=== PATIENT | female | born 1970 | race Caucasian/White ===

== ENCOUNTER 2020-11-08 09:15 | Outpatient (REF) | payer OTHER, SELFPAY ==
--- NOTE | ~2020-11-08 | MM_ITS ---
EXAMINATION: MM SCREENING DIGITAL BREAST TOMOSYNTHESIS, BILATERAL CLINICAL INFORMATION: Screening. Asymptomatic. The lifetime risk of breast cancer based on the Tyrer-Cuzick Model is 8.3%. COMPARISON: Mammography: May 30, 2018 and May 16, 2017 TECHNIQUE: Digital breast tomosynthesis is performed in both the craniocaudal and mediolateral oblique views along with computer-aided detection (CAD). Synthesized 2D images are generated from the tomosynthesis. FINDINGS: The breasts are heterogeneously dense, which may obscure small masses (ACR BI-RADS breast composition Category c). There are no significant masses, abnormal calcifications, or other abnormalities. MM/MM tomosynthesis screening BI IMPRESSION: There are no significant changes from prior study. ASSESSMENT: BI-RADS 1: Negative RECOMMENDATION: Routine annual mammography screening. This patient's information was entered into a reminder system with a target due date for their next mammogram.
== END 2020-11-08 09:16 | disposition home or self-care (01) ==
LOC: HO.MAMMO 09:15
PROVIDERS: Visit Provider Internal Medicine
DX: Z12.31 Encounter for screening mammogram for malignant neoplasm of breast (principal)
CPT/HCPCS: 77063; 77067

== ENCOUNTER 2021-01-03 08:51 | Outpatient (REF) | payer OTHER, SELFPAY ==
[2021-01-03 10:38] LABS: Hematocrit 39.8 % (37-47); Hemoglobin 12.9 g/dl (12.0-16.0); Mean Corpuscular HGB Conc 32.4 g/dl (31.0-35.0); Mean Corpuscular Volume 89.4 fL (80-98); Mean Platelet Volume 9.5 fL (9.4-12.3); Platelet Count 356 X10*3/uL (160-400); Red Blood Count 4.45 X10*6/uL (4.20-5.50); Red Cell Distribution Width 12.4 % (11.0-16.0); White Blood Count 9.8 X10*3/uL (4.8-10.8)
[2021-01-03 11:16] LABS: Alanine Aminotransferase 14 U/L (0-31); Albumin Level 4.4 g/dL (3.5-5.0); Alkaline Phosphatase 66 U/L (39-117); Anion Gap 13 (12-20); Aspartate Amino Transferase 16 U/L (5-31); Bilirubin Total 0.8 mg/dL (0.0-1.0); Blood Urea Nitrogen 7 mg/dL (9-16); C Reactive Protein 0.15 mg/dL (< or = 0.50); Calcium 9.5 mg/dL (8.4-10.2); Carbon Dioxide 25 mmol/L (22-29); Chloride 106 mmol/L (96-108); Estimated Glomerular Filt Rate > 60; Glucose Random 96 mg/dL (60-115); Potassium 4.2 mmol/L (3.3-5.1); Sodium 140 mmol/L (135-145); Total Protein 7.4 g/dL (6.5-8.0)
[2021-01-03 11:41] LABS: TSH reflex Free T4 0.04 uIU/mL (0.32-4.0)
[2021-01-03 12:45] LABS: Free T4 (Free Thyroxine) 1.48 ng/dL (0.71-1.85)
[2021-01-11 11:22] LABS: Transglutaminase Ab IgG <1.0 U/mL; Transglutaminase IgA <1.0 U/mL
== END 2021-01-03 08:52 | disposition home or self-care (01) ==
LOC: HO.LAB 08:51
PROVIDERS: PCP Internal Medicine; Referring Provider Internal Medicine; Visit Provider Nurse Practitioner Family
DX: R10.11 Right upper quadrant pain (principal); R14.0 Abdominal distension (gaseous); K21.9 Gastro-esophageal reflux disease without esophagitis; K58.1 Irritable bowel syndrome with constipation; K59.04 Chronic idiopathic constipation
CPT/HCPCS: 80053; 83516; 84439; 84443; 85027; 86140; 99212

== ENCOUNTER 2021-01-19 10:37 | Outpatient (REF) | payer OTHER, SELFPAY | END 2021-01-19 10:38 | disposition home or self-care (01) | LOC: HO.LNP 10:37 | PROVIDERS: Visit Provider Nurse Practitioner Family | DX: K21.9 Gastro-esophageal reflux disease without esophagitis (principal) | CPT/HCPCS: 87338 ==

== ENCOUNTER → 2021-02-17 09:31 | Outpatient (BNVA) | payer OTHER, SELFPAY | PROVIDERS: PCP Internal Medicine; Referring Provider Internal Medicine; Visit Provider Nurse Practitioner Family | DX: Z12.11 Encounter for screening for malignant neoplasm of colon (principal); K21.9 Gastro-esophageal reflux disease without esophagitis; K58.1 Irritable bowel syndrome with constipation; K59.00 Constipation, unspecified | CPT/HCPCS: 99212 ==

== ENCOUNTER 2021-05-26 11:19 | Emergency (ER) | payer OTHER, SELFPAY ==
[2021-05-26 11:42] VITALS: BP 136/83; PULSE 93; RESP 16; TEMP 36.9; O2SAT 99; BMI 25.7
[2021-05-26 12:12] LABS: Appearance Urine HAZY; Color Urine YELLOW; Glucose Urine UA NEG (NEG); Leukocyte Esterase Urine 1+ (NEG); Nitrite Urine NEG (NEG); PH 6.5 (5.0-8.0); UACC Culture Trigger YES; Urine Blood 1+ (NEG); Urine Ketones NEG (NEG); Urine Protein NEG (NEG-TRACE)
[2021-05-26 12:25] LABS: Bacteria Urine 1+ /LPF; Squamous Epithelial Cell Urine 1+ /LPF; UACC CULT YES; WBC Urine 30-49 /HPF (0-4)
[2021-05-26 12:26] LABS: Mucus Urine TRACE /LPF
[2021-05-26 16:55] VITALS: BP 143/86; PULSE 86; RESP 16; TEMP 37.4; O2SAT 100
--- NOTE | 2021-05-26 17:03 | ED.FEMALEGU ---
HPI - Female Genitourinary General Chief complaint: Urogenital-Female Stated complaint: blood in urine Time Seen by Provider: 05/26/21 16:42 Source: patient and interpreter for the deaf Mode of arrival: ambulatory Limitations: language barrier History of Present Illness HPI Narrative: 50-year-old female with a history of UTIs here with reports of dysuria and hematuria for 2 days with low back pain. Patient denies any vomiting, fevers, chills, abdominal pain or flank pain. Related Data Home Medications Medication Instructions Recorded Confirmed aripiprazole 15 mg tablet 15 mg PO DAILY 01/03/21 01/03/21 ibuprofen 800 mg tablet 800 mg PO TID 01/03/21 01/03/21 levothyroxine 112 mcg tablet 112 mcg PO .COMPLEX 01/03/21 01/03/21 (Synthroid) levothyroxine 125 mcg tablet See Rx Instructions PO DAILY 01/03/21 01/03/21 (Synthroid) Previous Rx's Medication Instructions Recorded bisacodyl 5 mg tablet,delayed 10 mg PO ONCE 1 Days #2 tab 02/17/21 release (Dulcolax (bisacodyl)) methylcellulose (laxative) 500 mg 500 mg PO DAILY #30 tab 02/17/21 tablet (Citrucel) polyethylene glycol 3350 17 238 g PO ONCE #238 g 02/17/21 gram/dose oral powder (Miralax) sennosides 8.6 mg tablet (Natural 8.6 mg PO BEDTIME #30 tab 02/17/21 Senna Laxative) omeprazole 40 mg capsule,delayed 40 mg PO BID 30 Days #60 cap 03/24/21 release nitrofurantoin 100 mg PO Q12H 5 Days #10 cap 05/26/21 monohydrate/macrocrystals 100 mg capsule (Macrobid) phenazopyridine 200 mg tablet 200 mg PO TID PRN #10 tab 05/26/21 (Pyridium) Allergies Allergy/AdvReac Type Severity Reaction Status Date / Time morphine [MORPHINE] Allergy Unknown ITCHING Verified 02/17/21 09:39 sucralfate [SUCRALFATE] Allergy Unknown RASH Verified 02/17/21 09:39 Review of Systems Review of Systems: Yes all other systems are reviewed and are negative Constitutional: Constitutional: Reports no additional constitutional complaints, Denies body ache(s), Denies chills, Denies fever(s), Denies headache(s) and Denies weakness Eyes: Eyes: Reports no additional eye complaints and Denies change in vision ENT: Reports system reviewed and no additional complaints, except as documented, Denies dizziness, Denies headache(s), Denies nasal congestion, Denies nasal discharge and Denies neck pain Cardiovascular: Cardiovascular: Reports no additional cardiovascular complaints, Denies chest pain, Denies leg edema and Denies dyspnea Respiratory: Respiratory: Reports no additional respiratory complaints, Denies cough and Denies dyspnea Gastrointestinal: Gastrointestinal: Reports no additional gastrointestinal complaints, Denies abdominal pain, Denies diarrhea, Denies nausea and Denies vomiting Genitourinary: Genitourinary: Reports no additional female genitourinary complaints, Reports hematuria, Reports dysuria, Denies flank pain, Denies urinary incontinence, Denies urinary hesitancy, Denies urinary urgency and Denies vaginal discharge Musculoskeletal: Musculoskeletal: Reports no additional musculoskeletal complaints, Reports back pain, Denies arthralgias, Denies joint swelling, Denies neck pain, Denies numbness and Denies tingling Integumentary/Breasts: Skin/Breast: Reports system reviewed and no additional complaints, except as docu and Denies rash Neurologic: Reports system reviewed and no additional complaints, except as documented, Denies Abnormal speech present, Denies dizziness, Denies headache(s), Denies numbness, Denies tingling and Denies weakness PMFSH Past Medical History Attestation statement: The following information was validated with the patient. Source: old records reviewed and nursing notes reviewed Surgical History History of cholecystectomy Family History Family History Father No problems noted. Mother Heart disease Social History Social History Alcohol intake: never Patient Tobacco Use Status: Never used Tobacco Advance Directives: No Advance Directives Information Provided: No Physical Exam Vital Signs: Vital Signs: Last Vital Signs Temp 99.3 F 05/26/21 16:55 Pulse 86 05/26/21 16:55 Resp 16 05/26/21 16:55 BP 143/86 H 05/26/21 16:55 Pulse Ox 100 05/26/21 16:55 BMI result Body Mass Index 25.7 Const: General: cooperative, healthy appearing, comfortable and no acute distress Orientation/consciousness: patient oriented x3 Limitations: no limitations HENMT: Head: Yes normal to inspection Ears: hearing grossly normal bilaterally General nose exam: Normal external nose present Face and sinus: Yes normal facial exam Mouth: Normal oral and palatal mucosa present Throat: Yes posterior oropharynx normal Eyes: General: appearance normal, both eyes and all related structures Pupils: Equal, round and reactive pupils present Neck: Neck: Yes normal visual inspection Chest: Chest palpation & inspection: normal inspection of the chest Resp: Effort & Inspection: normal respiratory effort Auscultation: clear to auscultation bilaterally Cardio: Rate: regular rate Rhythm: regular rhythm Peripheral pulses: Peripheral pulses 2+ throughout GI: Inspection: Yes normal to inspection Palpation (GI): Soft to palpation and nontender Auscultation: normal bowel sounds : General: Yes no CVA tenderness Back/Spine/Pelvis: Back: no CVA tenderness Thoracic/Lumbar Spine: thoracic and lumbar spine normal to inspection Skin: General skin exam: no rashes or lesions noted Neuro: General: patient oriented x3, no focal motor deficits and normal sensation to monofilament Cranial nerves: Yes Equal, round and reactive pupils present Cognition (Neuro): normal cognition Speech: No Abnormal speech present Gait exam (Neuro): Normal gait present Motor exam (neuro): 5/5 motor strength present throughout Extrem: General: Yes normal to inspection Course Course Course Narrative: 50-year-old female here with dysuria, hematuria and low back pain for 2 days. No flank pain, CVA tenderness, fever or vomiting. UA is consistent with a UTI. Hematuria is likely secondary to cystitis. Vitals are stable. Abdomen is soft nontender. Exam is benign. Will treat with course of antibiotics. Reviewed worrisome signs and symptoms of when to return to the emergency department. Comfortable discharge home. MDM - Female Genitourinary Medical Records Attestation: I reviewed the patient's medical records. Lab Data Attestation: I reviewed the patient's lab results. Labs: Lab Results 05/26/21 Range/Units 11:53 Urine Color YELLOW Urine Appearance HAZY Urine pH 6.5 (5.0-8.0) Ur Specific [place] 1.010 (1.005-1.025) Urine Protein NEG (NEG-TRACE) MG/DL Urine Glucose (UA) NEG (NEG) MG/DL Urine Ketones NEG (NEG) MG/DL Urine Blood 1+ H (NEG) Urine Nitrite NEG (NEG) Ur Leukocyte Esterase 1+ H (NEG) Urine RBC 5-9 H (0) /HPF Urine WBC 30-49 H (0-4) /HPF Ur Squamous Epith Cells 1+ /LPF Urine Bacteria 1+ /LPF Urine Mucus TRACE /LPF Discharge Plan Discharge Clinical Impression: Urinary tract infection Patient Disposition: Home, Self-Care Instructions: Urinary Tract Infection in Women (DC) Additional Instructions: Increase fluids, rest Prescriptions: New nitrofurantoin monohyd/m-cryst [Macrobid] 100 mg capsule 100 mg PO Q12H 5 Days Qty: 10 0RF Rx Instructions: must administer with a meal/food phenazopyridine [Pyridium] 200 mg tablet 200 mg PO TID PRN (Reason: pain) Qty: 10 0RF No Action omeprazole 40 mg capsule,delayed release(DR/EC) 40 mg PO BID 30 Days Qty: 60 3RF Rx Instructions: salas media hora antes del desayuno y 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 ibuprofen 800 mg tablet 800 mg PO TID 0RF aripiprazole 15 mg tablet 15 mg PO DAILY 0RF levothyroxine [Synthroid] 112 mcg tablet 112 mcg PO .COMPLEX 0RF Rx Instructions: 112 mcg PO Saturday through Saturday; levothyroxine [Synthroid] 125 mcg tablet See Rx Instructions PO DAILY 0RF Rx Instructions: Saturday and Saturday PO daily; bisacodyl [Dulcolax (bisacodyl)] 5 mg tablet,delayed release (DR/EC) 10 mg PO ONCE 1 Days Qty: 2 0RF Rx Instructions: take 2 tabs at noon the day before your colonoscopy polyethylene glycol 3350 [Miralax] 17 gram/dose powder 238 g PO ONCE Qty: 238 0RF Rx Instructions: As directed by gastroenterology department at [facility] Citrucel 500 mg tablet 500 mg PO DAILY Qty: 30 2RF Rx Instructions: take it with full glass of water sennosides [Natural Senna Laxative] 8.6 mg tablet 8.6 mg PO BEDTIME Qty: 30 2RF Referrals: Valentina Gutierrez MD [Primary Care Provider] - 1 week (For persistent symptoms) Interventions: ED Discharge Assessment Last Done: 05/26/21 17:15 Discharge Date/Time: 05/26/21 17:15 Print Language: Nauruan
== END 2021-05-26 17:15 | disposition home or self-care (01) ==
PROVIDERS: Emergency Provider Emergency Medicine; PCP Internal Medicine
DX: N39.0 Urinary tract infection, site not specified (principal)
CPT/HCPCS: 81001; 87086; 87088; 87186; 99283

== ENCOUNTER 2021-12-21 14:46 | Outpatient (REF) | payer OTHER, SELFPAY ==
--- NOTE | ~2021-12-21 | MM_ITS ---
EXAMINATION: MM SCREENING DIGITAL BREAST TOMOSYNTHESIS, BILATERAL CLINICAL INFORMATION: Screening. Asymptomatic. The lifetime risk of breast cancer based on the Tyrer-Cuzick Model is 8%. COMPARISON: Mammography: 11/08/2020, 05/30/2018, 05/16/2017 TECHNIQUE: Digital breast tomosynthesis is performed in both the craniocaudal and mediolateral oblique views along with computer-aided detection (CAD). Synthesized 2D images are generated from the tomosynthesis. Additional right MLO and exaggerated left CC views are provided. FINDINGS: There are scattered areas of fibroglandular density (ACR BI-RADS breast composition Category b). There are no significant masses, abnormal calcifications, or other abnormalities. Parenchymal pattern is similar to prior studies. There is no developing density or architectural abnormality. Again, there is a dermal lesion overlying the posterior lower inner left breast. The axilla are unremarkable. No significant changes. MM/MM tomosynthesis screening BI IMPRESSION: No mammographic evidence of malignancy. ASSESSMENT: BI-RADS 2: Benign RECOMMENDATION: Routine annual mammography screening. This patient's information was entered into a reminder system with a target due date for their next mammogram.
== END 2021-12-21 14:47 | disposition home or self-care (01) ==
LOC: HO.MAMMO 14:46
PROVIDERS: PCP Internal Medicine; Visit Provider Internal Medicine
DX: Z12.31 Encounter for screening mammogram for malignant neoplasm of breast (principal)
CPT/HCPCS: 77063; 77067

== ENCOUNTER 2022-09-14 10:43 | Outpatient (REF) | payer OTHER, SELFPAY ==
--- NOTE | ~2022-09-14 | XR_ITS ---
EXAMINATION: XR HAND, RIGHT CLINICAL INFORMATION: Right hand pain. COMPARISON: None available. TECHNIQUE: PA, lateral, and oblique views of the right hand. FINDINGS: Mild degenerative changes are present at the DIP joints, most prominent at the index finger. PIP joints, MCP joints and wrist appear unremarkable. No fractures are seen. No chondrocalcinosis. XR/XR hand RT min 3V IMPRESSION: Mild degenerative changes at the DIP joints.
== END 2022-09-14 10:44 | disposition home or self-care (01) ==
LOC: HO.XRAY 10:43
PROVIDERS: PCP Internal Medicine; Visit Provider General Practice
DX: M79.641 Pain in right hand (principal)
CPT/HCPCS: 73130

== ENCOUNTER 2023-03-26 11:57 | Outpatient (REF) | payer OTHER, SELFPAY | END 2023-03-26 11:58 | disposition home or self-care (01) | LOC: HO.MAMMO 11:57 | PROVIDERS: PCP Internal Medicine; Visit Provider Internal Medicine | DX: Z12.31 Encounter for screening mammogram for malignant neoplasm of breast (principal) | CPT/HCPCS: 77063; 77067 ==

== ENCOUNTER → 2023-03-26 12:15 | Outpatient (BNV) | payer OTHER, SELFPAY | PROVIDERS: PCP Internal Medicine; Visit Provider Radiology Diagnostic Radiology | DX: Z12.31 Encounter for screening mammogram for malignant neoplasm of breast (principal) | CPT/HCPCS: 77063; 77067 ==

== ENCOUNTER 2023-04-23 12:00 | Outpatient (REF) | payer OTHER, SELFPAY ==
[2023-04-26 03:40] LABS: HPV mRNA E6/E7 rflx Not Detected (Not Detected)
== END 2023-04-23 12:01 ==
LOC: HO.LNP 12:00
PROVIDERS: Visit Provider Advanced Practice Midwife
DX: Z12.4 Encounter for screening for malignant neoplasm of cervix (principal); Z11.51 Encounter for screening for human papillomavirus (HPV)
CPT/HCPCS: 87624; 88142

== ENCOUNTER 2023-05-13 10:18 | Outpatient (REF) | payer OTHER, SELFPAY ==
[2023-05-13 14:42] LABS: MANUAL DIFF FLAG NO
[2023-05-13 14:53] LABS: Basophils Percent Auto 0.2 % (0-2); Eosinophils Percent Auto 0.1 % (0-4); Hematocrit 40.7 % (37.0-47.0); Imm Gran Abs Auto 0.04 X10*3/uL (0.00-0.03); Imm Gran Pct Auto 0.4 % (0.0-0.4); Lymphocytes Absolute Auto 3.9 X10*3/uL (1.2-4.9); Mean Corpuscular HGB Conc 31.9 g/dl (31.0-35.0); Mean Corpuscular Hemoglobin 28.8 pg (27.0-33.0); Mean Platelet Volume 9.6 fL (9.4-12.3); Monocytes Absolute Auto 0.6 X10*3/uL (0.1-1.2); Monocytes Percent Auto 6.3 % (2-11); Neutrophils Absolute Auto 4.6 x10*3/uL (2.0-8.3); Platelet Count 324 X10*3/uL (160-400); Red Blood Count 4.52 X10*6/uL (4.20-5.50); Red Cell Distribution Width 13.2 % (11.0-16.0); White Blood Count 9.2 X10*3/uL (4.8-10.8)
[2023-05-13 15:11] LABS: Rheumatoid Factor < 13.0 IU/mL (<15.0)
[2023-05-13 15:29] LABS: Alanine Aminotransferase 16 U/L (0-31); Albumin Level 4.3 g/dL (3.5-5.0); Alkaline Phosphatase 93 U/L (39-117); Anion Gap 12 (12-20); Aspartate Amino Transferase 20 U/L (5-31); Bilirubin Total 0.6 mg/dL (0.0-1.0); Blood Urea Nitrogen 12 mg/dL (9-16); C Reactive Protein 0.23 mg/dL (< or = 0.50); Calcium 9.6 mg/dL (8.4-10.2); Carbon Dioxide 28 mmol/L (22-29); Chloride 104 mmol/L (96-108); Cholesterol 230 mg/dL (<200); Estimated Glomerular Filt Rate > 60; Glucose Random 87 mg/dL (60-115); HDL Cholesterol 64 mg/dL (>40); LDL Cholesterol Calculated 149 mg/dL (<100); Potassium 3.8 mmol/L (3.3-5.1); Sodium 140 mmol/L (135-145); Triglycerides 87 mg/dL (<150)
[2023-05-13 15:32] LABS: Erythrocyte Sedimentation Rate 34 MM/HR (0-20)
[2023-05-13 15:37] LABS: TSH reflex Free T4 2.72 uIU/mL (0.32-4.0)
[2023-05-14 07:29] LABS: HIV AB/AG Nonreactive (Nonreactive); HIV Num 1 0.77 S/CO (0.00-0.99)
== END 2023-05-13 10:19 | disposition home or self-care (01) ==
LOC: HO.CHCLDS 10:18
PROVIDERS: Visit Provider Internal Medicine
DX: Z00.00 Encounter for general adult medical examination without abnormal findings (principal); E03.9 Hypothyroidism, unspecified; M15.9 Polyosteoarthritis, unspecified
CPT/HCPCS: 36415; 80053; 80061; 84443; 85025; 85652; 86140; 86431; 87389

== ENCOUNTER 2023-12-24 10:51 | Outpatient (REF) | payer OTHER, SELFPAY ==
[2023-12-24 15:00] LABS: MANUAL DIFF FLAG NO
[2023-12-24 15:07] LABS: Basophils Percent Auto 0.1 % (0-2); Eosinophils Percent Auto 0.1 % (0-4); Hematocrit 39.5 % (37.0-47.0); Hemoglobin 12.8 g/dl (12.0-16.0); Imm Gran Abs Auto 0.04 X10*3/uL (0.00-0.03); Imm Gran Pct Auto 0.4 % (0.0-0.4); Lymphocytes Absolute Auto 3.3 X10*3/uL (1.2-4.9); Lymphocytes Percent Auto 35.4 % (20-40); Mean Corpuscular HGB Conc 32.4 g/dl (31.0-35.0); Mean Corpuscular Hemoglobin 29.4 pg (27.0-33.0); Mean Corpuscular Volume 90.8 fL (80.0-98.0); Mean Platelet Volume 9.9 fL (9.4-12.3); Monocytes Absolute Auto 0.6 X10*3/uL (0.1-1.2); Monocytes Percent Auto 6.9 % (2-11); Neutrophils Absolute Auto 5.3 x10*3/uL (2.0-8.3); Neutrophils Percent Auto 57.1 % (45-73); Platelet Count 328 X10*3/uL (160-400); Red Blood Count 4.35 X10*6/uL (4.20-5.50); Red Cell Distribution Width 13.2 % (11.0-16.0); White Blood Count 9.2 X10*3/uL (4.8-10.8)
[2023-12-24 15:30] LABS: Alanine Aminotransferase 27 U/L (0-31); Albumin Level 4.4 g/dL (3.5-5.0); Alkaline Phosphatase 95 U/L (39-117); Anion Gap 12 (12-20); Aspartate Amino Transferase 26 U/L (5-31); Bilirubin Total 0.6 mg/dL (0.0-1.0); Blood Urea Nitrogen 11 mg/dL (9-16); Carbon Dioxide 30 mmol/L (22-29); Chloride 102 mmol/L (96-108); Cholesterol 273 mg/dL (<200); Estimated Glomerular Filt Rate > 60; Glucose Random 90 mg/dL (60-115); HDL Cholesterol 67 mg/dL (>40); LDL Cholesterol Calculated 184 mg/dL (<100); Potassium 3.7 mmol/L (3.3-5.1); Sodium 140 mmol/L (135-145); Total Protein 7.9 g/dL (6.5-8.0); Triglycerides 114 mg/dL (<150)
[2023-12-24 15:45] LABS: TSH reflex Free T4 4.24 uIU/mL (0.32-4.0)
[2023-12-25 07:29] LABS: ~HepC Num1 0.23 S/CO (0.00-0.79); ~Hepatitis C Antibody Nonreactive (Nonreactive)
== END 2023-12-24 10:52 | disposition home or self-care (01) ==
LOC: HO.CHCLDS 10:51
PROVIDERS: Visit Provider Internal Medicine
DX: Z13.89 Encounter for screening for other disorder (principal)
CPT/HCPCS: 36415; 80053; 80061; 84439; 84443; 85025; 86803

== ENCOUNTER 2023-12-24 11:20 | Outpatient (REF) | payer OTHER, SELFPAY ==
--- NOTE | ~2023-12-24 | XR_ITS ---
EXAMINATION: XR HIP, LEFT CLINICAL INFORMATION: Left groin pain x 1 week. COMPARISON: None available. TECHNIQUE: Two views of the left hip. FINDINGS: No fracture, dislocation, or suspicious bone lesion. 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 Normal mineralization. No soft tissue abnormalities. XR/XR hip LT min 2V IMPRESSION: No acute findings left hip. Mild osteoarthritis. Electronically signed by: Abdirizak Karimi MD 03/03/2024 12:18 PM SOPHIA MCNAIR
== END 2023-12-24 11:21 | disposition home or self-care (01) ==
LOC: HO.HMGCX 11:20
PROVIDERS: PCP Internal Medicine; Visit Provider Internal Medicine
DX: R10.32 Left lower quadrant pain (principal)
CPT/HCPCS: 36415; 73502; 80053; 80061; 84439; 84443; 85025; 86803

== ENCOUNTER → 2023-12-24 11:25 | Outpatient (BNV) | payer OTHER, SELFPAY | PROVIDERS: PCP Internal Medicine; Visit Provider Radiology Diagnostic Radiology | DX: R10.30 Lower abdominal pain, unspecified (principal) | CPT/HCPCS: 73502 ==

== ENCOUNTER 2024-03-31 10:41 | Outpatient (REF) | payer OTHER, SELFPAY | END 2024-03-31 10:42 | disposition home or self-care (01) | LOC: HO.MAMMO 10:41 | PROVIDERS: PCP Internal Medicine; Visit Provider Internal Medicine | DX: Z12.31 Encounter for screening mammogram for malignant neoplasm of breast (principal) | CPT/HCPCS: 77063; 77067 ==

== ENCOUNTER → 2024-03-31 11:00 | Outpatient (BNV) | payer OTHER, SELFPAY | PROVIDERS: PCP Internal Medicine; Visit Provider Internal Medicine | DX: Z12.31 Encounter for screening mammogram for malignant neoplasm of breast (principal) | CPT/HCPCS: 77063; 77067 ==

== ENCOUNTER 2024-10-01 10:50 | Outpatient (REF) | payer OTHER, SELFPAY ==
[2024-10-01 11:48] LABS: D Dimer High Sensitivity < 150 NG/ML
[2024-10-01 12:20] LABS: Thyroid Stimulating Hormone 0.23 uIU/mL (0.32-4.0)
--- OUTSIDE RECORDS SUMMARY | 2024-10-01 12:49 | XMS_ITS | Clinical Summary ---
Author Organization [facility] Address [address] [facility] [address] [place] [address] Care Team Providers Care Wash Rack Operator Name Role Phone Valentina Gutierrez MD Primary Care Provider [phone] Allergies Active Allergy Reactions Criticality Noted Date Comments Sucralfate Itching High 02/25/2018 Medications * This document contains information received from the source organization and may not represent a complete record from that organization. ARIPiprazole (Abilify) 15 MG tablet Take 15 mg by mouth 1 (one) time each day. Active metroNIDAZOLE (MetroGel-Vaginal ) 0.75 % vaginal gel insert 1 applicatorful by vaginal route every day at bedtime for 5 nights Active Reguloid 0.52 g capsule Take 1 capsule by mouth 1 (one) time each day. Active QUEtiapine (SEROquel) 100 MG tablet Take 1 tablet by mouth 1 (one) time each day. Active temazepam (Restoril) 30 MG capsule Take 30 mg by mouth at bedtime. Active senna (Senokot) 8.6 MG tabletIndications :Slow transit constipation Take 1 tablet by mouth at bedtime as needed for constipation 90 tablet 1 Active omeprazole (PriLOSEC) [address] capsuleIndication s:Gastroesophagea l reflux disease without esophagitis Take 1 capsule by mouth once daily before a meal 90 capsule 1 Active Diclofenac Sodium (Voltaren) 1 % gelIndications:Pr imary osteoarthritis involving multiple joints apply (2G) by topical route 4 times every day to the affected area(s) 100 g 3 12/29/2 023 Active estradiol-norethi ndrone (CombiPatch) 0.05-0.14 MG/DAY Place 1 patch on the skin 2 (two) times a week. Apply patch on nonconsecutive days. Remove old patch when placing new patch 8 patch 2 024 Active Elastic Bandages & Supports (Medical Compression Stockings) miscIndications:E romelia, lower extremity Knee high. 15-20 mm/Hg. Dx: venous insufficiency. 1 each 024 Active levothyroxine (Tirosint) 125 MCG capsuleIndication s:Acquired hypothyroidism Take 1 capsule (125 mcg) by mouth before breakfast. 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 (CMS/HCC) (CMS/HCC) TAKE 1 CAPSULE BY MOUTH DAILY 30 capsule 1 025 Active pregabalin (Lyrica) 200 MG capsuleIndication s:Fibromyalgia TAKE 1 CAPSULE BY MOUTH TWICE A DAY 60 capsule 025 Active pregabalin (Lyrica) 200 MG capsuleIndication s:Fibromyalgia TAKE 1 CAPSULE BY MOUTH TWICE A DAY 60 capsule 025 2024 Discontinued venlafaxine XR (Effexor XR) 150 MG 24 hr capsuleIndication s:Moderate major depressive disorder with anxiety single episode (CMS/HCC) (CMS/HCC) TAKE ONE CAPSULE EVERY DAY 30 capsule 1 025 2024 Discontinued Active Problems Problem Noted Date Diagnosed Date Hypercholesterolemia 11/11/2020 Moderate major depressive di sorder with anxiety single episode (CMS/HCC) 11/11/2020 Fibromyalgia 03/21/2017 Hypothyroidism 03/21/2017 Osteoarthritis 03/21/2017 Peripheral nerve disease 03/21/2017 Scoliosis deformity of spine 03/21/2017 Encounters * This document contains information received from the source organization and may not represent a complete record from that organization. Date Type Department Care Team Description 10/01/2024 9:40 AM EDT Office Visit [facility] [address] [place] [address] Tachycardia (Primary Dx); Acquired hypothyroidism 10/01/2024 Travel 09/30/2024 Telephone [facility] [address] [place] [address] Valentina Gutierrez MD Nurse Triage 09/23/2024 Refill [facility] [address] [place] [address] Valentina Gutierrez MD Fibromyalgia; Moderate major depressive disorder with anxiety single episode (CMS/HCC) (CMS/HCC) 09/21/2024 Telephone [facility] [address] [place] [address] Valentina Gutierrez MD ER Follow-up 09/18/2024 Telephone [facility] [address] [place] [address] Valentina Gutierrez MD ER Follow-up 09/17/2024 [facility] [address] [place] [phone] Geraldine Zavala MD 09/15/2024 Telephone [facility] [address] [place] [phone] Valentina Gutierrez MD Nurse Triage 09/02/2024 Refill [facility] [address] [place] [phone] Valentina Gutierrez MD Moderate major depressive disorder with anxiety single episode (CMS/HCC) (CMS/HCC); Fibromyalgia 08/30/2024 Refill [facility] [address] [place] [address] Valentina Gutierrez MD Moderate major depressive disorder with anxiety single episode (CMS/HCC) (CMS/HCC) 08/28/2024 Refill [facility] [address] [place] [phone] Valentina Gutierrez MD Moderate major depressive disorder with anxiety single episode (CMS/HCC) (CMS/HCC); Fibromyalgia 08/25/2024 Refill [facility] [address] [place] [address] Valentina Gutierrez MD Fibromyalgia; Moderate major depressive disorder with anxiety single episode (CMS/HCC) (CMS/HCC) 08/05/2024 Refill [facility] [address] [place] [address] Valentina Gutierrez MD Fibromyalgia 07/29/2024 Refill [facility] [address] [place] [address] Valentina Gutierrez MD Fibromyalgia 07/07/2024 Refill [facility] [address] [facility] [place] [place] [address] Valentina Gutierrez MD Fibromyalgia from Last 3 Months Immunizations Immunization Administration Dates Next Due Influenza injectable quadriv alent IIV4 with preservative 01/27/2019,01/09/2018,04/19/2017 Influenza injectable quadriv alent preservative free 04/05/2023 Influenza, seasonal, injecta ble, preservative free 12/24/2023 Pfizer Covid-19 Vaccine 12+ 10/02/2020, Tdap 04/19/2017 Zoster, Recombinant 11/23/2020 Social History Tobacco Use Types Packs/Day Years Used Date Smoking Tobacco: Never Passive Smoke Exposure: Never Smokeless Tobacco: Never Tobacco Cessation:Counseling Given: Not Answered Alcohol Use Standard Drinks/Week Comments Never 0 (1 standard drink = 0.6 oz pur e alcohol) Depression Answer Date Recorded Patient Health Questionnaire-9 Score 15 12/24/2023 Patient Health Questionnaire-9 Score 15 12/24/2023 Last PHQ-9: Questionnaire Data Not on file 0 12/24/2023 Housing Stability Answer Date Recorded What is your housing situation today? I have arash donis 04/05/[address] you li ve. Do you have problems with any of the following? None of the above 04/05/2023 Food Insecurity Answer Date Recorded Within the past 12 months, y ou worried that your food would run out before you got money to buy more: Never True 04/05/2023 Within the past 12 months,th e food you bought just didn't last and you didn't have enough money to get more: Never True Transportation Answer Date Recorded In the past 12 months, has l ack of transportation kept you from medical appts, meetings, work or from getting things needed for daily living? No 04/05/2023 Utilities Answer Date Recorded In the past 12 months, has t he electric, gas, oil or water company threatened to shut off services in your home? No 04/05/2023 Depression Answer Date Recorded Patient Health Questionnaire-2 Score 3 12/24/2023 Comments Unknown Sex and Gender Information Value Date Recorded Sex Assigned at Female 02/05/2022 10:32 AM EDT Legal Sex Female 10:32 AM EDT Gender Identity Female 02/05/2022 10:32 AM EDT Sexual Orientation Straight 02/05/2022 10 :32 AM EDT Last Filed Vital Signs Vital Sign Reading Time Taken Comments Blood Pressure 143/93 10/01/2024 9:50 AM EDT Pulse 106 10/01/2024 9:50 AM EDT Temperature 36.7 C (98.1 F) 10/01/2024 9:50 AM EDT Respiratory Rate 18 10/01/2024 9:50 AM EDT Oxygen Saturation 100% 10/01/2024 9:50 AM EDT Inhaled Oxygen Concentration - - Weight 76.7 kg (169 lb) 10/01/2024 9:50 AM EDT Height 165.1 cm (5' 5 ) 10/01/2024 9:50 AM EDT Body Mass Index 28.12 10/01/2024 9:50 AM EDT Plan of Treatment Health Maintenance Due Date Last Done Comments CT Colonography 1970 Colonoscopy 1969 FIT 1969 FOBT 1970 Sigmoidoscopy 1970 Disability Screening 1969 Alcohol/Substance Use Screening 1981 Hepatitis B Vaccines (1 of 3 - 19+ 3-dose series) 1988 Pneumococcal Vaccine: 50+ Years (1 of 1 - PCV) 10/25/2019 Zoster Vaccines (2 of 2) 01/18/2021 11/23/2020 COVID-19 Vaccine (3 - 2023- season) 2023 10/02/2020, 09/11/2020 SDOH Screening 04/05/2024 04/05/2023 Depression Monitoring 06/22/2024 12/24/2023, 024 Tobacco Screening 10/01/2025 10/01/2024 Mammogram 03/31/2026 03/31/2024, 03/08, 12/21/2021, Additional history exists Cervical Cancer Screening 04/23/2026 HPV/Cotest 04/23/2026 04/23/2023, 01/07, 05/07/2017 Pap Smear 04/23/2026 04/23/2023 Colorectal Cancer Screening 05/08/2026 FIT DNA/Cologuard 05/08/2026 05/08/2023 DTaP/Tdap/Td Vaccines (2 - Td or Tdap) 04/19/2027 04/19/2017 RSV Patients and Patients Aged 60 years or older (1 - 1-dose 75+ series) 2044 HIV Screening Completed 05/13/2023 Hepatitis C Screening Completed 12/24/2023 Influenza Vaccine Completed 12/24/2023, , 01/27/2019, Additional history exists HIB Vaccines Aged Out No longer eligi ble based on patient's age to complete this topic HPV Vaccines Aged Out No longer eligi ble based on patient's age to complete this topic Hepatitis A Vaccines Aged Out No long er eligible based on patient's age to complete this topic IPV Vaccines Aged Out No longer eligi ble based on patient's age to complete this topic Meningococcal B Vaccine Aged Out No l onger eligible based on patient's age to complete this topic Meningococcal Vaccine Aged Out No zonia elvis eligible based on patient's age to complete this topic RSV under 20 months Aged Out No longe r eligible based on patient's age to complete this topic Rotavirus Vaccines Aged Out No longer eligible based on patient's age to complete this topic Procedures Procedure Name Priority Date/Time Associated Diagnosis Comments D DIMER HIGH SENSITIVITY Routine 10/01/2024 10:52 AM EDT Tachycardia TSH Routine 10/01/2024 10:52 AM EDT Tachycardia Acquired hypothyroidism ECG 12-LEAD Routine 09/15/2024 9:49 AM EDT BI MAMMOGRAM SCREENING TOMOSYNTHESIS BILATERAL Routine 03/31/2024 10:44 AM EST HEPATITIS C AB W/REFL TO HCV RNA, QN, PCR Routine 12/24/2023 10:53 AM EDT Hypercholesterolemia Acquired hypothyroidism HIV 1/2 ANTIGEN/ANTIBODY, FOURTH GENERATION W/RFL Routine 05/13/2023 10:20 AM EST Annual physical exam LAB COLOGUARD COLON CANCER SCREEN Routine 05/08/2023 2:10 PM EST Screening for colon cancer HPV MRNA E6/E7 REFLEX TO HPV 16, 18/45 Routine 04/23/2023 2:20 PM EST PAP SMEAR Routine 04/23/2023 2:20 PM EST Cervical cancer screening from Last 3 Months or Most Recently Relevant to Health Maintenance Results * D Dimer High Sensitivity (10/01/2024 10:52 AM EDT) D Dimer High Sensitivity <150 NG/ML [facility] Comment:D-DIMER HS REFERENCE RANGENote: Our assay reports D-Dimer Units (D- DU).The cut-off value for venous thromboembolic (VTE) disease is230 ng/mL. This value has a very high negative predictivevalue when the patient has a low to moderate clinicalprobability of VTE.The upper limit of normal is 243 ng/mL. Blood 10/01/2024 10:5 2 AM EDT 10/01/2024 11:25 AM EDT Sharon Gonzalez MD LAB BLOOD ORDERABLES Final Re sult [facility] [address] [place] [phone] * (ABNORMAL) TSH (10/01/2024 10:52 AM EDT) Thyroid Stimulating Hormone 0.23(L) 0.32 - 4.0 uIU/mL [facility] Comment:TSH 3rd Generation ( [facility]) Blood Venous blood specimen / Unknown 10/01/2024 10:52 AM EDT 10/01/2024 11:25 AM EDT Sharon Gonzalez MD LAB BLOOD ORDERABLES Final Re sult [facility] [address] [place] [phone] [phone] * ECG 12 lead (09/15/2024 9:49 AM EDT) Historical Provider ECG ORDERABLES Final Res ult * BI Mammogram Screening Tomosynthesis Bilateral (03/31/2024 10:44 AM EST) Anatomical Region Laterality Modality Breast Bilateral Mammography 03/31/2024 10:4 4 AM EST Narrative 04/14/2024 9:50 AM EST [address] [place] [address] Mammography Report Signed Patient: Staci Yoder MR#: [id number] 02 : 1970 Acct:[id number] Age/Sex: 53 / F ADM Date: 03/31/24 Loc: HO.MAMMO Attending Dr: Valentina Gutierrez MD Ordering Physician: Valentina Gutierrez MD Results: 1 Negative Date of Service: 03/31/24 Follow Up: 1 Year From Orig ina Mammogram Procedure(s): MM tomosynthesis screening BI Accession Number(s): [id number] cc: Valentina Gutierrez MD EXAMINATION: MM SCREENING DIGITAL BREAST TOMOSYNTHESIS, BILATERAL CLINICAL INFORMATION: Screening. Asymptomatic. COMPARISON: Mammography: Comparison is made with available priors TECHNIQUE: Digital breast mammography with tomosynthesis is performed in both the craniocaudal and mediolateral oblique views along with computer-aided detection (CAD). FINDINGS: There are scattered areas of fibroglandular density (ACR BI-RADS breast composition Category b). There are no significant masses, abnormal calcifications, or other abnormalities. MM/MM tomosynthesis screening BI IMPRESSION: No mammographic evidence of malignancy. ASSESSMENT: BI-RADS BI-RADS 1 - Negative RECOMMENDATION: Routine annual mammography screening. 1 year F/U This examination should not preclude the clinical evaluation of a suspicious palpable abnormality. This patient's information was entered into a reminder system with a target due date for their next mammogram. Electronically signed by: Letty Batres DO 04/14/2024 09:47 AM EST Dictated By: Letty Batres DO Signed By: <Electronically signed by Letty Batres DO in OV> 04/14/24 0947 DD/ 1044 TD/TT: 03/31/24 1058 Office Machine Technician: Procedure Note Donotuseinterpreter, Image - 04/14/2024 [facility] [address] [place], [place] [address] Mammography Report Signed Patient: Jack Yoder#: [id number] 02 : 1970Acct:[id number] Age/Sex: 53 / FADM Date: 03/31/24 Loc: HO.MAMMO Attending Dr: Valentina Gutierrez MD Ordering Physician: Valentina Gutierrez MDResults: 1 Negative Date of Service: 03/31/24Follow Up: 1 Year From Orig inal Mammogram Procedure(s): MM tomosynthesis screening BI Accession Number(s): [id number] cc: Valentina Gutierrez MD EXAMINATION: MM SCREENING DIGITAL BREAST TOMOSYNTHESIS, BILATERAL CLINICAL INFORMATION: Screening. Asymptomatic. COMPARISON: Mammography: Comparison is made with available priors TECHNIQUE: Digital breast mammography with tomosynthesis is performed in both the craniocaudal and mediolateral oblique views along with computer-aided detection (CAD). FINDINGS: There are scattered areas of fibroglandular density (ACR BI-RADS breast composition Category b). There are no significant masses, abnormal calcifications, or other abnormalities. MM/MM tomosynthesis screening BI IMPRESSION: No mammographic evidence of malignancy. ASSESSMENT: BI-RADS BI-RADS 1 - Negative RECOMMENDATION: Routine annual mammography screening. 1 year F/U This examination should not preclude the clinical evaluation of a suspicious palpable abnormality. This patient's information was entered into a reminder system with a target due date for their next mammogram. Electronically signed by: Letty Batres DO 04/14/2024 09:47 AM EST Dictated By: Letty Batres DO Signed By: <Electronically signed by Letty Batres DO in OV> 04/14/24 0947 DD/ 1044 TD/TT: 03/31/24 1058 Office Machine Technician: us Valentina Gutierrez MD IMG BI PROCEDURES Edited Re sult - Final * Hepatitis C Antibody with Reflex to HCV, RNA, Quantitative, Real-Time PCR (12/24/2023 10:53 AM EDT) Hepatitis C Antibody Nonreactive Nonreactive [facility] Comment:Antibodies to HCV no t detected; does not exclude early acuteHCV infection. Blood Venous blood specimen / Unknown 12/24/2023 10:53 AM EDT 12/24/2023 2:54 PM EDT us Valentina Gutierrez MD LAB BLOOD ORDERABLES Final Result [facility] [address] [place] [phone] * HIV-1/2 Antigen and Antibodies, Fourth Generation, with Reflexes (05/13/2023 10:20 AM EST) HIV AB/AG Nonreactive Nonreactive [facility] Comment:HIV-1 p24 Ag and/or HIV-1/HIV-2 Ab not detected.A test result that is nonreactive does not exclude thepossibility of exposure to or infection with HIV-1 and/orHIV-2. Nonreactive results in this assay for individualswith prior exposure to HIV-1 and/or HIV-2 may be due toantigen and antibody levels that are below the limit ofdetection of this assay.The [employer] HIV Ag/Ab Combo assay result andsupplemental assay results should be interpreted inconjunction with the patient's clinical presentation,history and other laboratory results. If the results areinconsistent with clinical evidence, additional testing issuggested to confirm the result. Blood Venous blood specimen / Unknown 05/13/2023 10:20 AM EST 05/13/2023 2:36 PM EST Valentina Gutierrez MD LAB BLOOD ORDERABLES Final Result [facility] [address] [place] [phone] * Cologuard?? colon cancer screening (05/08/2023 2:10 PM EST) Cologuard Result Negative Negative 05/16/19 2:45 AM EST [facility] (CLIA #:[id number]) Comment: NEGATIVE TEST RESULT. A negative Cologuard result indicates a low likelihood that a colorectal cancer (CRC) or advanced adenoma (adenomatous polyps with more advanced pre-malignant features) is present. The chance that a person with a negative Cologuard test has a colorectal cancer is less than 1 in 1500 (negative predictive value >99.9%) or has an advanced adenoma is less than 5.3% (negative predictive value 94.7%). These data are based on a prospective cross-sectional study of 10,000 individuals at average risk for colorectal cancer who were screened with both Cologuard and colonoscopy. (Nidhi Mujica et al, N Engl J Med 2014;370(14):7959-0187) The normal value (reference range) for this assay is negative. COLOGUARD RE-SCREENING RECOMMENDATION: Periodic colorectal cancer screening is an important part of preventive healthcare for asymptomatic individuals at average risk for colorectal cancer. Following a negative Cologuard result, the [place] [employer] and U.S. Multi-Society Task Force screening guidelines recommend a Cologuard re-screening interval of 3 years. References: [place] [employer] Guideline for Colorectal Cancer Screening: https://www.cancer.org/cancer/bklrj-wveyeg-wodhmo/rwyxjsuma-ejeyqrmeo-zoqorsj/ac s-rec ommendations.html.; Fidel TABOR, Maria Teresa CR, Eric DillardK, Colorectal Cancer Screening: Recommendations for Physicians and Patients from the U.S. Multi-Society Task Force on Colorectal Cancer Screening , Am J Gastroenterology 2017; 112:9625-8863. TEST DESCRIPTION: Composite algorithmic analysis of stool DNA-biomarkers with hemoglobin immunoassay. Quantitative values of individual biomarkers are not reportable and are not associated with individual biomarker result reference ranges. Cologuard is intended for colorectal cancer screening of adults of either sex, 45 years or older, who are at average-risk for colorectal cancer (CRC). Cologuard has been approved for use by the U.S. FDA. The performance of Cologuard was established in a cross sectional study of average-risk adults aged 50-84. Cologuard performance in patients ages 45 to 49 years was estimated by sub-group analysis of near-age groups. Colonoscopies performed for a positive result may find as the most clinically significant lesion: colorectal cancer [4.0%], advanced adenoma (including sessile serrated polyps greater than or equal to 1cm diameter) [20%] or non- advanced adenoma [31%]; or no colorectal neoplasia [45%]. These estimates are derived from a prospective cross-sectional screening study of 10,000 individuals at average risk for colorectal cancer who were screened with both Cologuard and colonoscopy. (Nidhi Ulrich al, N Engl J Med 2014;370(14):6620-3248.) Cologuard may produce a false negative or false positive result (no colorectal cancer or precancerous polyp present at colonoscopy follow up). A negative Cologuard test result does not guarantee the absence of CRC or advanced adenoma (pre-cancer). The current Cologuard screening interval is every 3 years. ([place] [employer] and U.S. Multi-Society Task Force). Cologuard performance data in a 10,000 patient pivotal study using colonoscopy as the reference method can be accessed at the following location: www.[employer].KeepGo/results. Additional description of the Cologuard test process, warnings and precautions can be found at www.[employer].com. Stool specimen (specimen) 05/08/2023 2:10 PM EST 05/09/2023 10:50 AM EST us Valentina Gutierrez MD LAB MOLECULAR DIAGNOSTICS O RDERABLES Final Result [facility] (CLIA #:[id number]) [place] [address], * HPV mRNA E6/E7 w/Reflex to HPV Genotypes 16, 18/45 (04/23/2023 2:20 PM EST) HPV nRNA E6/E7 Not Detected Not Detected [facility] Comment:Methodology: Transcr iption-Mediated AmplificationThis assay detects E6/E7 viral messenger RNA (mRNA) from 14high-risk HPV types (16,18,31,33,35,39,45,51,52,56,58,59,66,68).Cervical sources are required for HPV testing.If a vaginal source from a patient who has had atotal hysterectomy with removal of cervix wassubmitted, please contact the testing laboratoryfor alternative testing options.For additional information, please refer tohttp://education.Pencil You In/faq/BWQ760h3(This link if provided for information/educational purposes only.)THIS TEST WAS PERFORMED AT:[facility] [place] [phone] TAYLOR MD HPV mRNA E6/E7 [facility] HPV 16 RNA [facility] HPV 18/45 RNA [facility] 04/23/2023 2:20 PM EST 04/24/2023 11:50 AM EST Trudi DANIELS LAB CYTOLOGY ORDERABLES F inal Result [facility] [address] [place] [phone] [phone] * Pap Smear (04/23/2023 2:20 PM EST) Swab Cervix uteri structure / Unknown 04/23/2023 2:20 PM EST 04/24/2023 11:50 AM EST Narrative [facility] - 04/29/2023 3:08 PM EST ----- ------- Name: Staci Yoder Age/Sex: 52/F : 1970 Unit#: [id number] Attend Dr: Re04/23/23 Status: PRE REF Location: [facility] Disch: ----- ------- SPEC : [id number] RECD: 04/24/23-1150 STATUS: LEV CLEMENCIAMirian NUM: [id number] EZ: 04/23/23-[address] [facility] [address]: TRUDI VALENCIA [facility] ENTERED: 04/24/23-1201 SP TYPE: Pap Smr OT DR: ORDERED: Pap Smear Interpretation Satisfactory for evaluation. No endocervical cells seen. Negative for intraepithelial lesion or malignancy. HPV mRNA E6/E7: NOT DETECTED This assay detects E6/E7 viral messenger RNA (mRNA) from 14 high-risk HPV types (16, 18, 31, 33, 35, 39, 45, 51, 52, 56, 58, 59, 66, 68) HPV testing performed by [email or web address], [place], [place]. See reference laboratory portion of the EMR for entire report. Clinical Information LMP: Unknown date Previous PAP test: Unknown date/findings Material Received ThinPrep-Cervical ----- ------- Signed (signature on file) Jimena Rizvi 04/29/23 1508 ----- ------- END OF REPORT Trudi Valencia [facility] LAB CYTOLOGY ORDERABLES F inal Result [facility] [address] [place] [phone] from Last 3 Months or Most Recently Relevant to Health Maintenance Insurance [employer] < 65 [place] [id number] Care Teams Wash Rack Operator Relationship Specialty Start Date End Date Valentina Gutierrez MD [address] [place] [phone] PCP - General Internal Medicine 03/22/17
== END 2024-10-01 10:51 | disposition home or self-care (01) ==
LOC: HO.CHCLDS 10:50
PROVIDERS: Visit Provider Internal Medicine
DX: R00.0 Tachycardia, unspecified (principal); E03.9 Hypothyroidism, unspecified
CPT/HCPCS: 36415; 84443; 85379

== ENCOUNTER 2024-10-29 09:35 | Outpatient (REF) | payer OTHER, SELFPAY ==
--- OUTSIDE RECORDS SUMMARY | 2024-10-29 10:13 | XMS_ITS | Clinical Summary ---
Author Organization [facility] Address [address] [place] [address] Phone Care Team Providers Care Stud Driver Name Role Phone Valentina Gutierrez MD Primary Care Provider [phone] Allergies No known active allergies Medications omeprazole (PriLOSEC) [address] capsule Take 1 capsule (20 mg total) by mouth 1 (one) time each day. Do not crush or chew. 30 each 5 11/07/19 25 Active ondansetron ODT (ZOFRAN-ODT) 4 mg disintegrating tabletIndications: Gastroesophageal reflux disease without esophagitis Let 1 tablet dissolve under the tongue three times daily as needed for nausea or vomiting. 10 tablet 5 10/15/19 25 Active Problems No known active problems Encounters Date Type Department Care Team Description 10/07/2024 1:36 PM EDT - 10/07/2024 6:48 PM EDT Emergency [facility] Emergency [address] [place] [phone] Fred Lanier MD Cheng, Ting Ho Danny, DO Chest pain, unspecified type (Primary Dx); Gastroesophageal reflux disease without esophagitis Discharge Disposition: Home or Self Care 09/15/2024 11:32 AM EDT - 09/15/2024 2:00 PM EDT Emergency [facility] Emergency [address] [place] [phone] Chest wall pain (Primary Dx) Discharge Disposition: Home or Self Care from Last 3 Months Social History Tobacco Use Types Packs/Day Years Used Date Smoking Tobacco: Never Smokeless Tobacco: Never Tobacco Cessation:Counseling Given: Not Answered Alcohol Use Standard Drinks/Week Comments Never 0 (1 standard drink = 0.6 oz pur e alcohol) Comments Unknown Sex and Gender Information Value Date Recorded Sex Assigned at Not on file Legal Sex Female 3:32 PM EST Gender Identity Not on file Sexual Orientation Not on file Obstetrics History Last Filed Vital Signs Vital Sign Reading Time Taken Comments Blood Pressure 129/81 10/07/2024 6:24 PM EDT Pulse 85 10/07/2024 6:24 PM EDT Temperature 37.7 C (99.8 F) 10/07/2024 6:24 PM EDT Respiratory Rate 18 10/07/2024 6:24 PM EDT Oxygen Saturation 99% 10/07/2024 6:24 PM EDT Inhaled Oxygen Concentration - - Weight 77.1 kg (170 lb) 10/07/2024 1:35 PM EDT Height 162.6 cm (5' 4 ) 10/07/2024 1:35 PM EDT Body Mass Index 29.18 10/07/2024 1:35 PM EDT Plan of Treatment Health Maintenance Due Date Last Done Comments Breast Cancer Screening 1970 Hepatitis B Vaccines (1 of 3 - 19+ 3-dose series) 1988 Pneumococcal Vaccine: 50+ Years (1 of 1 - PCV) 10/25/2019 Zoster Vaccines (2 of 2) 01/18/2021 11/23/2020 COVID-19 Vaccine (3 - season) 2023 10/02/2020, 09/11/2020 Depression Screening 04/08/2024 Cholesterol Screening (Lipid Panel) 09/15/2024 Medicare Annual Wellness Visit 09/15/2024 Social Influencers of Health Screening 09/15/2024 Influenza Vaccine (#1) 2024 , 04/05/2023, 01/27/2019, Additional history exists Cervical Cancer Screening: Pap Smear 04/23/2026 04/23/2023 Colorectal Cancer Screening: FIT-DNA (Cologuard) 05/08/2026 05/08/2023 DTaP,Tdap,and Td Vaccines (2 - Td or Tdap) 04/19/2027 04/19/2017 HIV Screening Completed 05/13/2023 Hepatitis C Screening Completed 12/24/2023 HIB Vaccines Aged Out No longer eligi [...] on patient's age to complete this topic MMR Vaccines Aged Out No longer eligi ble based on patient's age to complete this topic Meningococcal ACWY Vaccine Aged Out N o longer eligible based on patient's age to complete this topic Meningococcal B Vaccine Aged Out No l onger eligible based on patient's age to complete this topic RSV Immunization Patients Under 20 months Aged Out No longer eligible based on patient's age to complete this topic Varicella Vaccines Aged Out No longer eligible based on patient's age to complete this topic Procedures Procedure Name Priority Date/Time Associated Diagnosis Comments ECG ANNOTATED 10/08/2024 CT ANGIO CHEST WO AND/OR W CONTRAST STAT 10/07/2024 3:23 PM EDT Chest pain, unspecified type TROPONIN I HIGH SENSITIVITY STAT 10/07/2024 2:37 PM EDT XR CHEST 2 VIEWS STAT 10/07/2024 2:04 PM EDT TRIIODOTHYRONINE FREE STAT 10/07/2024 1:54 PM EDT FREE THYROXINE WITH REFLEX TO FREE TRIIODOTHYRONINE STAT 10/07/2024 1:54 PM EDT THYROID STIMULATING HORMONE WITH REFLEX TO FREE T4 AND FREE T3 STAT Add-on 10/07/2024 1:54 PM EDT CBC WITH AUTO DIFFERENTIAL STAT 10/07/2024 1:54 PM EDT B-TYPE NATRIURETIC PEPTIDE STAT 10/07/2024 1:54 PM EDT MAGNESIUM STAT 10/07/2024 1:54 PM EDT LIPASE STAT 10/07/2024 1:54 PM EDT COMPREHENSIVE METABOLIC PANEL STAT 10/07/2024 1:54 PM EDT CBC AND DIFFERENTIAL STAT 10/07/2024 1:54 PM EDT TROPONIN I HIGH SENSITIVITY STAT 10/07/2024 1:54 PM EDT ECG 12-LEAD STAT 10/07/2024 1:30 PM EDT ECG ANNOTATED 09/16/2024 ECG 12-LEAD STAT 09/15/2024 12:32 PM EDT TROPONIN I HIGH SENSITIVITY STAT 09/15/2024 12:14 PM EDT XR CHEST 2 VIEWS STAT 09/15/2024 11:5 5 AM EDT CBC WITH AUTO DIFFERENTIAL STAT 09/15/2024 11:11 AM EDT B-TYPE NATRIURETIC PEPTIDE STAT 09/15/2024 11:11 AM EDT MAGNESIUM STAT 09/15/2024 11:11 AM EDT LIPASE STAT 09/15/2024 11:11 AM EDT COMPREHENSIVE METABOLIC PANEL STAT 09/15/2024 11:11 AM EDT CBC AND DIFFERENTIAL STAT 09/15/2024 11:11 AM EDT TROPONIN I HIGH SENSITIVITY STAT 09/15/2024 11:11 AM EDT ECG 12-LEAD STAT 09/15/2024 11:08 AM EDT from Last 3 Months Results * ECG-Annotated (10/08/2024) Only the most recent of2 resultswithin the time period is included. us Provider Onbase MD ECG ORDERABLES Final Result * CT Angio Chest wo and/or w Contrast (10/07/2024 3:23 PM EDT) Anatomical Region Laterality Modality Body Computed Tomogra phy 10/07/2024 3:30 PM EDT Impressions 10/07/2024 3:32 PM EDT No acute cardiopulmonary disease. -------- FINAL REPORT -------- Dictated By: Jovi Sarabia Dictated Date: 10/07/2024 15:30 ET Assigned Physician: Jovi Sarabia Reviewed and Electronically Signed By: Jovi Sarabia Signed Date: 10/07/2024 15:32 ET Workstation ID: [id number] Transcribed By: Self Edit Transcribed Date: 10/07/2024 15:30 ET Narrative 10/07/2024 3:32 PM EDT PROCEDURE: CT ANGIO CHEST INDICATION: PE suspected, high prob COMPARISON: None. TECHNIQUE: CT pulmonary angiogram performed following uneventful IV administration of ISOVUE contrast material with bolus timing technique from the thoracic inlet through the lung bases. 3-D multiplanar reformations were obtained by the technologist on an independent workstation. [employer] VCT dose reduction utilizing iterative reconstruction. Total exam DLP 249 (mGy-cm) FINDINGS: There is no CT evidence of acute pulmonary embolism to the lobar level. Evaluation of the segmental and subsegmental pulmonary arteries is limited due to motion artifact and small peripheral pulmonary emboli cannot be excluded. The heart is within normal limits in size. There is no pericardial effusion. The thoracic aorta is normal in caliber. There is no evidence for mediastinal or hilar lymphadenopathy. There are minor dependent hypoventilatory changes within each lower lobe. There are no pleural effusions. The visualized portion of the upper abdomen demonstrates no acute findings however technique was not optimized for evaluation for more subtle lesions. Cholecystectomy. The included skeletal structures are within normal limits for technique. Procedure Note Jovi Sarabia MD - 10/07/2024 PROCEDURE: CT ANGIO CHEST INDICATION: PE suspected, high prob COMPARISON: None. TECHNIQUE: CT pulmonary angiogram performed following uneventful IVadministration of ISOVUE contrast material with bolus timing techniquefrom the thoracic inlet through the lung bases. 3-D multiplanar reformations were obtained by the technologist on anindependent workstation. [employer] VCT dose reduction utilizing iterative reconstruction. Total exam DLP 249 (mGy-cm) FINDINGS: There is no CT evidence of acute pulmonary embolism to the lobar level.Evaluation of the segmental and subsegmental pulmonary arteries is limiteddue to motion artifact and small peripheral pulmonary emboli cannot beexcluded. The heart is within normal limits in size. There is no pericardialeffusion. The thoracic aorta is normal in caliber. There is no evidence for mediastinal or hilar lymphadenopathy. There are minor dependent hypoventilatory changes within each lowerlobe. There are no pleural effusions. The visualized portion of the upper abdomen demonstrates no acute findingshowever technique was not optimized for evaluation for more subtlelesions. Cholecystectomy. The included skeletal structures are within normal limits for technique. IMPRESSION: No acute cardiopulmonary disease. -------- FINAL REPORT -------- Dictated By: Jovi Sarabia Dictated Date: 10/07/2024 15:30 ET Assigned Physician: Jovi Sarabai Reviewed and Electronically Signed By: Jovi Sarabia Signed Date: 10/07/2024 15:32 ET Workstation ID: [id number] Transcribed By: Self Edit Transcribed Date: 10/07/2024 15:30 ET Fred Lanier MD IMG CT PROCEDURES Final Result * Troponin I high sensitivity (10/07/2024 2:37 PM EDT) Only the most recent of4 resultswithin the time period is included. High Sensitivity Troponin I 8 <=54 ng/L LAB CHEMISTRY METHOD 10/07/2024 3:41 PM EDT [facility] Blood Venous blood specimen / Unknown Venipuncture / Unknown 10/07/2024 2:37 PM EDT 10/07/2024 3:07 PM EDT Narrative [facility] - 10/07/2024 3:41 PM EDT High levels of biotin in samples may falsely decrease hsTroponin values. Use caution when interpreting hsTroponin results in patients taking biotin who exhibit renal impairment (eGFR <60) or in patients taking more than 20 mg/day of biotin. us Fred Lanier MD LAB BLOOD ORDERABLES Final Resu lt [facility] [address] [place] [address], [place] [phone] * XR Chest 2 Views (10/07/2024 2:04 PM EDT) Only the most recent of2 resultswithin the time period is included. Anatomical Region Laterality Modality Body Radiographic Karin ging 10/07/2024 2:37 PM EDT Impressions 10/07/2024 2:37 PM EDT FINDINGS/IMPRESSION: Normal heart size and pulmonary vascularity. Lungs are clear and costophrenic angles are sharp. No acute osseous abnormality. -------- FINAL REPORT -------- Dictated By: Jovi Sarabia Dictated Date: 10/07/2024 14:37 ET Assigned Physician: Jovi Sarabia Reviewed and Electronically Signed By: Jovi Sarabia Signed Date: 10/07/2024 14:37 ET Workstation ID: [id number] Transcribed By: Self Edit Transcribed Date: 10/07/2024 14:37 ET Narrative 10/07/2024 2:37 PM EDT XR CHEST 2 VIEWS INDICATION: chest pain TECHNIQUE: XR CHEST 2 VIEWS COMPARISON: No priors available. Procedure Note Jovi Sarabia MD - 10/07/2024 XR CHEST 2 VIEWS INDICATION: chest pain TECHNIQUE: XR CHEST 2 VIEWS COMPARISON: No priors available. IMPRESSION: FINDINGS/IMPRESSION: Normal heart size and pulmonary vascularity. Lungsare clear and costophrenic angles are sharp. No acute osseousabnormality. -------- FINAL REPORT -------- Dictated By: Jovi Sarabia Dictated Date: 10/07/2024 14:37 ET Assigned Physician: Jovi Sarabia Reviewed and Electronically Signed By: Jovi Sarabia Signed Date: 10/07/2024 14:37 ET Workstation ID: [id number] Transcribed By: Self Edit Transcribed Date: 10/07/2024 14:37 ET us Fred Lanier MD IMG XR PROCEDURES Final Result * (ABNORMAL) Thyroid stimulating hormone with reflex to free t4 and free t3 (TSH Reflex) (10/07/2024 1:54 PM EDT) TSH 0.26(L) 0.40 - 4.00 mcIU/mL LAB CHEMISTRY METHOD 10/07/2024 3:43 PM EDT [facility] Blood Venous blood specimen / Unknown Venipuncture / Unknown 10/07/2024 1:54 PM EDT 10/07/2024 2:16 PM EDT us Fred Lanier MD LAB BLOOD ORDERABLES Final Resu lt Performing Organization Address [facility]/ZIP Co de Phone Number [facility] [address] [place] [address], [place] [phone] * Free thyroxine with reflex to free triiodothyronine (10/07/2024 1:54 PM EDT) [facility] Free T4 1.71 0.70 - 1.80 ng/dL LAB CHEMISTRY METHOD 10/07/2024 5:16 PM EDT [facility] Blood Venous blood specimen / Unknown Venipuncture / Unknown 10/07/2024 1:54 PM EDT 10/07/2024 2:16 PM EDT us Fred Lanier MD LAB BLOOD ORDERABLES Final Resu lt Performing Organization Address [facility]/ZIP Co de Phone Number [facility] [address] [place] [address], [place] [phone] * (ABNORMAL) CBC auto differential (10/07/2024 1:54 PM EDT) Only the most recent of2 resultswithin the time period is included. Pathologist [facility] WBC 10.4 4.8 - 10.8 K/mcL LAB HEMETOLOGY METHOD 10/07/2024 2:25 PM EDT [facility] RBC 5.00(H) 3.80 - 4.80 M/mcL LAB HEMETOLOGY METHOD 10/07/2024 2:25 PM EDT [facility] Hemoglobin 14.3 11.5 - 16.0 g/dL LAB HEMETOLOGY METHOD 10/07/2024 2:25 PM EDT [facility] Hematocrit 44.2 35.0 - 47.0 % LAB HEMETOLOGY METHOD 10/07/2024 2:25 PM EDT [facility] MCV 87.9 79.0 - 98.0 FL LAB HEMETOLOGY METHOD 10/07/2024 2:25 PM EDT [facility] MCH 28.4 27.0 - 32.0 pcg LAB [facility]OLOGY [facility] MCHC 32.4 32.0 - 37.0 g/dL LAB HEMETOLOGY METHOD 10/07/2024 2:25 PM EDT [facility] RDW 12.5 11.0 - 15.0 % LAB HEMETOLOGY METHOD 10/07/2024 2:25 PM EDT [facility] Platelets 363 130 - 400 K/mcL LAB HEMETOLOGY [facility]/07[facility]2024 [facility] MPV 9.5 7.0 - 11.0 FL LAB HEMETOLOGY METHOD 10/07/2024 2:25 PM EDT [facility] NRBC 0.0 <1.0 % LAB HEMETOLOGY METHOD 10/07/2024 2:25 PM EDT [facility] NRBC Absolute 0.00 <0.10 K/mcL LAB HEMETOLOGY METHOD 10/07/2024 2:25 PM EDT [facility] Neutrophils Relative 61.5 % LAB HEMETOLOGY METHOD 10/07/2024 2:25 PM EDT [facility] Lymphocytes Relative 33.6 % LAB HEMETOLOGY METHOD 10/07/2024 2:25 PM EDT [facility] Monocytes Relative 4.2 % LAB HEMETOLOGY METHOD 10/07/2024 2:25 PM EDT [facility] Eosinophils Relative 0.1 % LAB HEMETOLOGY METHOD 10/07/2024 2:25 PM EDT [facility] Basophils Relative 0.2 % LAB HEMETOLOGY METHOD 10/07/2024 2:25 PM EDT [facility] Immature Granulocytes Relative 0.4 % LAB HEMETOLOGY METHOD 10/07/2024 2:25 PM EDT [facility] Neutrophils Absolute 6.40 1.50 - 7.00 K/mcL LAB HEMETOLOGY METHOD 10/07/2024 2:25 PM EDT [facility] Lymphocytes Absolute 3.50 1.00 - 5.00 K/mcL LAB HEMETOLOGY METHOD 10/07/2024 2:25 PM EDT [facility] Monocytes Absolute 0.44 0.20 - 1.00 K/mcL LAB HEMETOLOGY METHOD 10/07/2024 2:25 PM EDT [facility] Eosinophils Absolute 0.01 0.00 - 0.50 K/mcL LAB HEMETOLOGY METHOD 10/07/2024 2:25 PM EDT [facility] Basophils Absolute 0.02 0.00 - 0.20 K/mcL LAB HEMETOLOGY METHOD 10/07/2024 2:25 PM EDT [facility] Immature Granulocytes Absolute 0.04(H) 0.00 - 0.03 K/mcL LAB HEMETOLOGY METHOD 10/07/2024 2:25 PM [facility] Blood Venous blood specimen / Unknown Venipuncture / Unknown 10/07/2024 1:54 PM EDT 10/07/2024 2:16 PM EDT us Fred Lanier MD LAB BLOOD ORDERABLES Final Resu lt Performing Organization Address City/[facility]/ZIP Co de Phone Number [facility] [address] [place] [address], [place] [phone] * Triiodothyronine free (10/07/2024 1:54 PM EDT) T3, Free 331 230 - 420 pcg/dL LAB CHEMISTRY METHOD 10/07/2024 6:03 PM EDT [facility] Blood Venous blood specimen / Unknown Venipuncture / Unknown 10/07/2024 1:54 PM EDT 10/07/2024 2:16 PM EDT us Fred Lanier MD LAB BLOOD ORDERABLES Final Resu lt Performing Organization Address [facility] Co de Phone Number [facility] [address] [place] [address], [place] [phone] * B-type natriuretic peptide (10/07/2024 1:54 PM EDT) Only the most recent of2 resultswithin the time period is included. BNP <2 <=100 pcg/mL LAB CHEMISTRY METHOD 10/07/2024 2:53 PM EDT [facility] Blood Venous blood specimen / Unknown Venipuncture / Unknown 10/07/2024 1:54 PM EDT 10/07/2024 2:16 PM EDT us Fred Lanier MD LAB BLOOD ORDERABLES Final Resu lt Performing Organization Address City/[facility]/ZIP Co de Phone Number [facility] [address] [place] [address], [place] [phone] * Magnesium (10/07/2024 1:54 PM EDT) Only the most recent of2 resultswithin the time period is included. Magnesium 2.0 1.9 - 2.6 mg/dL LAB CHEMISTRY METHOD 10/07/2024 2:58 PM EDT [facility] Blood Venous blood specimen / Unknown Venipuncture / Unknown 10/07/2024 1:54 PM EDT 10/07/2024 2:16 PM EDT us Fred Lanier MD LAB BLOOD ORDERABLES Final Resu lt Performing Organization Address [facility] Co de Phone Number [facility] [address] [place] [address], [place] [phone] * Lipase (10/07/2024 1:54 PM EDT) Only the most recent of2 resultswithin the time period is included. Lipase 41 13 - 75 unit/L LAB CHEMISTRY METHOD 10/07/2024 2:58 PM EDT [facility] Blood Venous blood specimen / Unknown Venipuncture / Unknown 10/07/2024 1:54 PM EDT 10/07/2024 2:16 PM EDT us Fred Lanier MD LAB BLOOD ORDERABLES Final Resu lt Performing Organization Address [facility] de Phone Number [facility] [address] [place] [address], [place] [phone] * (ABNORMAL) Comprehensive metabolic panel (10/07/2024 1:54 PM EDT) Only the most recent of2 resultswithin the time period is included. Sodium 135 133 - 145 mmol/L LAB CHEMISTRY METHOD 10/07/2024 2:58 PM EDT [facility] Potassium 3.7 3.5 - 5.5 mmol/L LAB CHEMISTRY METHOD 10/07/2024 2:58 PM EDT [facility] Chloride 103 96 - 110 mmol/L LAB CHEMISTRY METHOD 10/07/2024 2:58 PM EDT [facility] CO2 26 21 - 32 mmol/L LAB CHEMISTRY METHOD 10/07/2024 2:58 PM [facility] Anion Gap 6 3 - 11 LAB CHEMISTRY METHOD 10/07/2024 2:58 PM [facility] Glucose 158(H) 70 - 100 mg/dL LAB CHEMISTRY METHOD 10/07/2024 2:58 PM [facility] BUN 19 5 - 25 mg/dL LAB CHEMISTRY METHOD 10/07/2024 2:58 PM [facility] Creatinine 1.16(H) 0.50 - 1.10 mg/dL LAB CHEMISTRY METHOD 10/07/2024 2:58 PM [facility] eGFR 56(L) >=60 mL/min/1. 73m2 LAB CHEMISTRY METHOD 10/07/2024 2:58 PM [facility] Comment:Calculation based on the Chronic Kidney Disease Epidemiology Collaboration (CKD-EPI) equation refit without adjustment for race. BUN/Creatinine Ratio 16.4 LAB CHEMISTRY METHOD 10/07/2024 2:58 PM [facility] Calcium 10.0 8.5 - 10.5 mg/dL LAB CHEMISTRY METHOD 10/07/2024 2:58 PM [facility] AST (SGOT) 23 10 - 42 unit/L LAB CHEMISTRY METHOD 10/07/2024 2:58 PM [facility] ALT (SGPT) 33 10 - 60 unit/L LAB CHEMISTRY METHOD 10/07/2024 2:58 PM [facility] Alkaline Phosphatase 119 42 - 121 unit/L LAB CHEMISTRY METHOD 10/07/2024 2:58 PM [facility] Total Protein 8.2(H) 6.0 - 8.0 g/dL LAB CHEMISTRY METHOD 10/07/2024 2:58 PM [facility] Albumin 4.0 3.2 - 5.0 g/dL LAB CHEMISTRY METHOD 10/07/2024 2:58 PM EDT [facility] Total Bilirubin 0.6 0.0 - 1.4 mg/dL LAB CHEMISTRY METHOD 10/07/2024 2:58 PM EDT [facility] Blood Venous blood specimen / Unknown Venipuncture / Unknown 10/07/2024 1:54 PM EDT 10/07/2024 2:16 PM EDT us Fred Lanier MD LAB BLOOD ORDERABLES Final Resu lt [facility]) [facility] [address] [place] [address], [place] [phone] * ECG 12 lead (10/07/2024 1:30 PM EDT) Only the most recent of3 resultswithin the time period is included. Ventricular Rate ECG 124 BPM [facility] Atrial Rate 124 BPM [facility] P-R Interval 126 ms GEMUSE QRS Duration 78 ms GEMUSE Q-T Interval 306 ms GEMUSE QTc 439 ms GEMUSE P Wave [place] 68 degrees GEMUSE R [place] 61 degrees GEMUSE T [place] 47 degrees GEMUSE ECG Interpretation Sinus tachycardia Right atrial enlargement RSR' or QR pattern in V1 suggests right ventricular conduction delay Nonspecific ST abnormality When compared with ECG of 15-SEP-2024 12:32, Vent. rate has increased BY 44 BPM Confirmed by OLIMPIA STROUD ([id number]) on 10/08/2024 5:39:45 AM [facility] 10/07/2024 1:30 PM EDT 10/08/2024 5:39 AM EDT us Fred Lanier MD ECG ORDERABLES Final Result Performing Organization Address City/[facility]/ZIP Co de Phone Number [facility] from Last 3 Months Insurance [employer] Member Subscriber Plan / Payer (Ef fective 2019-Present) Name:STACI APPIAH Relation to Subscriber:Self Name:Staci Appiah Payer ID:[id number] Group ID:[id number] Type:Not on file Address: [place] [address] [address] [place] [phone] Care Teams Stud Driver Relationship Specialty Start Date End Date Valentina Gutierrez MD [address] [place] [address] PCP - General Internal Medicine 11/11/20
== END 2024-10-29 09:36 | disposition home or self-care (01) ==
LOC: HO.CHCLDS 09:35
PROVIDERS: Visit Provider Internal Medicine
DX: E03.9 Hypothyroidism, unspecified (principal)
CPT/HCPCS: 36415; 84443

== ENCOUNTER 2024-12-29 08:42 | Outpatient (REF) | payer OTHER, SELFPAY ==
--- OUTSIDE RECORDS SUMMARY | 2024-12-25 14:00 | XMS_ITS | Encounter Summary ---
Author Organization [employer] Address [address] [facility] 7 [place] [address] Care Team Providers Care Screen Cutter And Trimmer Name Role Phone Valentina Gutierrez MD Primary Care Provider [phone] Reason for Visit * Reason Comments dandruff Extensive office visit Encounter Details Date Type Department Care Team (Latest Contact Info) Description 12/25/2024 2:00 PM EDT Office Visit 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 I have arash donis 12/25/[address] you li ve. Do you have problems with any of the following? None of the above 12/25/2024 Food Insecurity Answer Date Recorded Within the past 12 months, y ou worried that your food would run out before you got money to buy more: Never True 12/25/2024 Within the past 12 months,th e food you bought just didn't last and you didn't have enough money to get more: Never True Transportation Answer Date Recorded In the past 12 months, has l ack of transportation kept you from medical appts, meetings, work or from getting things needed for daily living? No 12/25/2024 Utilities Answer Date Recorded In the past 12 months, has t he electric, gas, oil or water company threatened to shut off services in your home? No 12/25/2024 Depression Answer Date Recorded Patient Health Questionnaire-2 Score 3 12/25/2024 Internet Access Answer Date Recorded Internet Access Q1 Yes 12/25/2024 Internet Access Q2 Not on file 12/25/2024 Comments Unknown Sex and Gender Information Value Date Recorded Sex Assigned at Female 02/05/2022 10:32 AM EDT Legal Sex Female 10:32 AM EDT Gender Identity Female 02/05/2022 10:32 AM EDT Sexual Orientation Straight 02/05/2022 10 :32 AM EDT documented as of this encounter Last Filed Vital Signs Vital Sign Reading Time Taken Comments Blood Pressure 133/87 12/25/2024 1:31 PM EDT Pulse 94 12/25/2024 1:31 PM EDT Temperature 36.3 C (97.3 F) 12/25/2024 1:31 PM EDT Respiratory Rate 20 12/25/2024 1:31 PM EDT Oxygen Saturation 98% 12/25/2024 1:31 PM EDT Inhaled Oxygen Concentration - - Weight 78 kg (172 lb) 12/25/2024 1:31 PM EDT Height 165.1 cm (5' 5 ) 12/25/2024 1:31 PM EDT Body Mass Index 28.62 12/25/2024 1:31 PM EDT documented in this encounter Functional Status * Over the past 2 weeks, how often have you been bothered by any of the following problems? Question Answer Date of Assessment Author Patient Health Questionnaire-2 Score 3 12/07 2:12 PM EDT Colleen Park [place] * Little interest or pleasure in doing things Answer Date of Assessment Author Several days 12/25/2024 2:12 PM EDT Nabeel Park MA * Feeling down, depressed, or hopeless Answer Date of Assessment Author More than half the days 12/25/2024 2:12 PM EDT Colleen Hayes MA * Trouble falling or staying asleep, or sleeping too much Answer Date of Assessment Author Nearly every day 12/25/2024 2:12 PM EDT Fabian Park MA * Feeling tired or having little energy Answer Date of Assessment Author Not at all 12/25/2024 2:12 PM EDT Nabeel Park MA * Poor appetite or overeating Answer Date of Assessment Author More than half the days 12/25/2024 2:12 PM EDT Colleen Hayes MA * Feeling bad about yourself - or that you are a failure or have let yourself or your family down Answer Date of Assessment Author More than half the days 12/25/2024 2:12 PM EDT Colleen Hayes MA * Trouble concentrating on things, such as reading the newspaper or watching television Answer Date of Assessment Author Not at all 12/25/2024 2:12 PM EDT Nabeel Park MA * Moving or speaking so slowly that other people could have noticed? Or the opposite - being so fidgety or restless that you have been moving around a lot more than usual. Answer Date of Assessment Author Not at all 12/25/2024 2:12 PM EDT Nabeel Park MA * Thoughts that you would be better off or hurting yourself in some way Answer Date of Assessment Author Not at all 12/25/2024 2:12 PM EDT Nabeel Park MA * Patient Health Questionnaire-9 Score Answer Date of Assessment Author 10 12/25/2024 2:12 PM EDT Nabeel Park MA * How difficult have these problems made it for you to do your work, take care of things at home, or get along with other people? Answer Date of Assessment Author Somewhat difficult 12/25/2024 2:12 PM EDT Colleen Park MA documented as of this encounter Progress Notes * Valentina Gutierrez MD - 12/25/2024 2:00 PM EDT RICHARD Yoder is a 54 y.o. female who presents for dandruff and Extensive office visit. HPI Here for an extensive office visit. PT feels overall well. Only c/o pruritus of the scalp w/ some scales x 1-2 months. Has used multiple OTC medication w/o significant improvement. Denies fever or any other constitutional symptoms Has a scheduled appointment w/ Cardiology in Mar 02. Denies palpitations during the evaluation. Problem List[1] Allergies[2] Medications Ordered Prior to Encounter[3] Review of Systems Constitutional: Negative for activity change, appetite change, chills and diaphoresis. HENT: Negative for dental problem, drooling, ear discharge, ear pain and hearing loss. Eyes: Negative for pain, discharge and itching. Respiratory: Negative for cough, choking and chest tightness. Cardiovascular: Negative for chest pain and leg swelling. Gastrointestinal: Negative for blood in stool and diarrhea. Genitourinary: Negative for difficulty urinating, dyspareunia, dysuria, enuresis, flank pain, frequency and genital sores. Musculoskeletal: Negative for arthralgias, gait problem and joint swelling. Skin: Negative for pallor. Neurological: Negative for dizziness, seizures, speech difficulty, light- headedness and numbness. Psychiatric/Behavioral: Negative for behavioral problems, confusion and decreased concentration. OBJECTIVE Vitals: 12/25/24 1331 BP: 133/87 BP Location: Left arm Patient Position: Sitting BP Cuff Size: Adult Pulse: 94 Resp: 20 Temp: 97.3 ??F (36.3 ??C) TempSrc: Oral SpO2: 98% Weight: 172 lb (78 kg) Height: 5' 5 (1.651 m) Physical Exam Constitutional: General: She is not in acute distress. Appearance: Normal appearance. She is not ill-appearing, toxic-appearing or diaphoretic. HENT: Head: Normocephalic and atraumatic. Nose: Nose normal. Cardiovascular: Rate and Rhythm: Normal rate. Pulmonary: Effort: Pulmonary effort is normal. Abdominal: Palpations: Abdomen is soft. Musculoskeletal: General: Normal range of motion. Skin: Comments: The scalp is non inflammatory, non scaly. Normal hair density Neurological: General: No focal deficit present. Mental Status: She is alert. Assessment/Plan Assessment/Plan Diagnoses and all orders for this visit: Acquired hypothyroidism Comments: currently on 112 mcg daily Pt needs a repeat TSH to assess if any adjustment is necessary Dandruff in adult Comments: Advised to start using [place]-smooth w/ a durag 2 times a week. Orders: - Fluocinolone Acetonide Scalp ([place]-Smoothe/FS Scalp) 0.01 % oil; To use 2 times a week at night.Cover the head w/ a Durag and rinse in the morning after a shampoo. Hypercholesterolemia Comments: No need to start Medication for now. Low chol diet recommended. Moderate major depressive disorder with anxiety single episode (CMS/HCC) ([facility]) Comments: Receiving psych care already Pt denies SI/HI [1] Patient Active Problem List Diagnosis Fibromyalgia Hypercholesterolemia Hypothyroidism Moderate major depressive disorder with anxiety single episode (CMS/HCC) ([facility]) Osteoarthritis Peripheral nerve disease Scoliosis deformity of spine [2] Allergies Allergen Reactions Sucralfate Itching [3] Current Outpatient Medications on File Prior to Visit Medication Sig Dispense Refill ARIPiprazole (Abilify) 15 MG tablet Take 15 mg by mouth 1 (one) time each day. Diclofenac Sodium (Voltaren) 1 % gel apply (2G) by topical route 4 times every day to the affected area(s) 100 g 3 Elastic Bandages & Supports (Medical Compression Stockings) misc Knee high. 15- 20 mm/Hg. Dx: venous insufficiency. 1 each 0 estradiol-norethindrone (CombiPatch) 0.05-0.14 MG/DAY Place 1 patch on the skin 2 (two) times a week. Apply patch on nonconsecutive days. Remove old patch when placing new patch 8 patch 2 hydrOXYzine pamoate (Vistaril) 25 MG capsule TAKE 1 CAPSULE BY MOUTH EVERY TWELVE HOURS NEEDED ANXIETY 60 capsule 0 levothyroxine (Synthroid) 100 MCG tablet Take 1 tablet (100 mcg) by mouth before breakfast. 100 mcgevery other day, 112 mcg every other day. 30 tablet 11 levothyroxine (Synthroid) 112 MCG tablet Take 1 tablet (112 mcg) by mouth before breakfast. 30 tablet 11 metroNIDAZOLE (MetroGel-Vaginal) 0.75 % vaginal gel insert 1 applicatorful by vaginal route every day at bedtime for 5 nights Omeprazole 20 MG tablet delayed-release Take 1 tablet (20 mg) by mouth Once per day. 90 tablet 0 pregabalin (Lyrica) 200 MG capsule TAKE 1 CAPSULE BY MOUTH TWICE A DAY 60 capsule 0 propranolol (Inderal) 10 MG tablet Take 1 tablet (10 mg) by mouth 3 times daily. 90 tablet 11 QUEtiapine (SEROquel) 100 MG tablet Take 1 tablet by mouth 1 (one) time each day. Reguloid 0.52 g capsule Take 1 capsule by mouth 1 (one) time each day. senna (Senokot) 8.6 MG tablet Take 1 tablet by mouth at bedtime as needed for constipation 90 tablet 1 temazepam (Restoril) 30 MG capsule Take 30 mg by mouth at bedtime. venlafaxine XR (Effexor XR) 150 MG 24 hr capsule Take 1 capsule (150 mg) by mouth Once per day. 30 capsule 1 No current facility-administered medications on file prior to visit. 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
--- OUTSIDE RECORDS SUMMARY | 2024-12-29 09:48 | XMS_ITS | Encounter Summary ---
Author Organization [employer] Address [address] [facility] 7t [place] [address] Care Team Providers Care Sample Maker Hand Name Role Phone Valentina Gutierrez MD Primary Care Provider [phone] Encounter Details Date Type Department Care Team (Late st Contact Info) Description 10/08/2024 Orders Only [facility] CHC MED & PEDS [address] [place] [address] ProviderGeraldine MD Social History Tobacco Use Types Packs/Day Years [...] t he electric, gas, oil or water [employer] threatened to shut off services in your home? No 04/05/2023 Depression Answer Date Recorded Patient Health Questionnaire-2 Score 3 12/24/2023 Comments Unknown Sex and Gender Information Value Date Recorded Sex Assigned at Female 02/05/2022 10:32 AM EDT Legal Sex Female 10:32 AM EDT Gender Identity Female 02/05/2022 10:32 AM EDT Sexual Orientation Straight 02/05/2022 10 :32 AM EDT documented as of this encounter Plan of Treatment Not on file documented as of this encounter Procedures Procedure Name Priority Date/Time Associated Diagnosis Comments ECG 12-LEAD Routine 10/07/2024 9:11 AM EDT documented in this encounter Results * ECG 12 lead (10/07/2024 9:11 AM EDT) us Historical Provider ECG ORDERABLES Final Res ult documented in this encounter Visit Diagnoses Not on filedocumented in this encounter Additional Health Concerns Assessment Noted Time PHQ-9 Depression Total Score: 15 024 9:56 AM EDT documented as of this encounter Care Teams Sample Maker Hand Relationship Specialty Start Date End Date Valentina Gutierrez MD [address] [place] [id number] PCP - General Internal Medicine 03/22/17 documented as of this encounter
--- OUTSIDE RECORDS SUMMARY | 2024-12-29 09:48 | XMS_ITS | Encounter Summary ---
Author Organization [employer] Address [address] [facility] [address] [place] [address] Care Team Providers Care Internet Designer Name Role Phone Valentina Gutierrez MD Primary Care Provider [phone] Reason for Visit * Reason Comments Med Refill Encounter Details Date Type Department Care Team (Late st Contact Info) Description 07/29/2024 Refill [facility] MEDICINE [address] [place] [address] Valentina Gutierrez MD [address] [place] [phone] Fibromyalgia Social History Tobacco Use Types Packs/Day Years [...] on file documented as of this encounter Visit Diagnoses Diagnosis Fibromyalgia Unspecified myalgia and myositis documented in this encounter Additional Health Concerns Assessment Noted Time PHQ-9 Depression Total Score: 15 024 9:56 AM EDT documented as of this encounter Care Teams Internet Designer Relationship Specialty Start Date End Date Valentina Gutierrez MD [address] [place] [id number] PCP - General Internal Medicine 03/22/17 documented as of this encounter
--- OUTSIDE RECORDS SUMMARY | 2024-12-29 09:48 | XMS_ITS | Encounter Summary ---
Author Organization [employer] Address [address] [facility] 7t [place] [address] Care Team Providers Care Dormitory Maid Name Role Phone Valentina Gutierrez MD Primary Care Provider [phone] Encounter Details Date Type Department Care Team (Late st Contact Info) Description 12/24/2023 Orders Only [facility] CHC MED & PEDS [address] [place], [place] [phone] Valentina Gutierrez MD [address] [place] [address] Acquired hypothyroidism (Primary Dx) Social History Tobacco Use Types Packs/Day Years [...] AM EDT documented as of this encounter Functional Status * Over the past 2 weeks, how often have you been bothered by any of the following problems? Question Answer Date of Assessment Author Patient Health Questionnaire-2 Score 3 12/07 9:56 AM [place] Colleen Park [place] * If you checked off any problems on this questionnaire so far, Question Answer Date of Assessment Author How difficult have these problems made it for you to do your work, take care of things at home, or get along with other people? Somewhat difficult 12/24/2023 9:56 AM Colleen Handy MA * Over the past 2 weeks, how often have you been bothered by any of the following problems? Question Answer Date of Assessment Author Little interest or pleasure in doing things More than half the days 12/24/2023 9:56 AM Colleen Handy MA Feeling down, depressed, or hopeless Several days 12/24/2023 9:56 AM Colleen Handy MA Trouble falling or staying asleep, or sleeping too much More than half the days 12/24/2023 9:56 AM Colleen Handy MA Feeling tired or having little energy Nearly every day 12/24/2023 9:56 AM Colleen Handy MA Poor appetite or overeating More than half the days 12/24/2023 9:56 AM Colleen Handy MA Feeling bad about yourself - or that you are a failure or have let yourself or your family down Several days 12/24/2023 9:56 AM Colleen Handy MA Trouble concentrating on things, such as reading the newspaper or watching television Nearly every day 12/24/2023 9:56 AM EDT Colleen Park MA Moving or speaking so slowly that other people could have noticed? Or the opposite - being so fidgety or restless that you have been moving around a lot more than usual. Several days 12/24/2023 9:56 AM EDT Colleen Park MA Thoughts that you would be better off or hurting yourself in some way Not at all 12/24/2023 9:56 AM EDT Colleen Park MA Patient Health Questionnaire-9 Score 15 12/24/2023 9:56 AM EDT Colleen Park M A documented as of this encounter Plan of Treatment Not on file documented as of this encounter Procedures Procedure Name Priority Date/Time Associated Diagnosis Comments TSH W/REFLEX TO FT4 Routine 10/29/2024 9:36 AM EDT Acquired hypothyroidism documented in this encounter Results * TSH W/Reflex to FT4 (10/29/2024 9:36 AM EDT) TSH reflex Free T4 0.33 0.32 - 4.0 uIU/mL [facility] Blood Venous blood specimen / Unknown 10/29/2024 9:36 AM EDT 10/29/2024 2:02 PM EDT Valentina Gutierrez MD LAB BLOOD ORDERABLES Final Result [facility] [address] [place] [address] [phone] documented in this encounter Visit Diagnoses Diagnosis Acquired hypothyroidism- Primary Unspecified hypothyroidism documented in this encounter Additional Health Concerns Assessment Noted Time PHQ-9 Depression Total Score: 15 024 9:56 AM EDT documented as of this encounter Care Teams Dormitory Maid Relationship Specialty Start Date End Date Valentina Gutierrez MD [address] [place] [address] PCP - General Internal Medicine 03/22/17 documented as of this encounter
--- OUTSIDE RECORDS SUMMARY | 2024-12-29 09:48 | XMS_ITS | Encounter Summary ---
Author Organization [employer] Address [address] [facility] 7t [place] [address] Care Team Providers Care Sourcing Associate Name Role Phone Valentina Gutierrez MD Primary Care Provider [phone] Reason for Visit * Reason Comments Med Refill Encounter Details Date Type Department Care Team ([facility] st Contact Info) Description 08/28/2024 Refill [facility] MEDICINE [address] [place] [address] Valentina Gutierrez MD [address] [place] [address] Moderate major depressive disorder with anxiety single episode (CMS/HCC) (CMS/HCC); Fibromyalgia Social History Tobacco Use Types Packs/Day [...] as of this encounter Visit Diagnoses Diagnosis Moderate major depressive disorder with anxiety single episode (CMS/HCC) (CMS/HCC) Fibromyalgia Unspecified myalgia and myositis documented in this encounter Additional Health Concerns Assessment Noted Time PHQ-9 Depression Total Score: 15 024 9:56 AM EDT documented as of this encounter Care Teams Sourcing Associate Relationship Specialty Start Date End Date Valentina Gutierrez MD [address] [place] [phone] PCP - General Internal Medicine 03/22/17 documented as of this encounter
--- OUTSIDE RECORDS SUMMARY | 2024-12-29 09:48 | XMS_ITS | Encounter Summary ---
Author Organization [employer] Address [address] [facility] 7t [place] [address] Care Team Providers Care Analytical Lab Analyst Name Role Phone Valentina Gutierrez MD Primary Care Provider [phone] Encounter Details Date Type Department Care Team (Late st Contact Info) Description 09/17/2024 Orders Only [facility] [address] [place] [address] ProviderGeraldine MD Social History Tobacco Use Types [...] t he electric, gas, oil or water [employer] threatened to shut off services in your [...] Date/Time Associated Diagnosis Comments ECG 12-LEAD Routine 09/15/2024 9:49 AM EDT documented in this encounter Results * ECG 12 lead (09/15/2024 9:49 AM EDT) us Historical Provider ECG ORDERABLES Final Res ult documented in this encounter Visit Diagnoses Not on filedocumented in this encounter Additional Health Concerns Assessment Noted Time PHQ-9 Depression Total Score: 15 024 9:56 AM EDT documented as of this encounter Care Teams Analytical Lab Analyst Relationship Specialty Start Date End Date Valentina Gutierrez MD [address] [place] [phone] PCP - General Internal Medicine 03/22/17 documented as of this encounter
--- OUTSIDE RECORDS SUMMARY | 2024-12-29 09:48 | XMS_ITS | Encounter Summary ---
Author Organization [employer] Address [address] [facility] 7 [place] [address] Care Team Providers Care Nursing Resident Name Role Phone Valentina Gutierrez MD Primary Care Provider [phone] Reason for Visit * Reason Comments Med Refill Encounter Details Date Type Department Care Team (Late st Contact Info) Description 09/23/2024 Refill [facility] MEDICINE [address] [place] [address] Valentina Gutierrez MD [address] [place] [address] Fibromyalgia; Moderate major depressive disorder with anxiety [...] Diagnoses Diagnosis Fibromyalgia Unspecified myalgia and myositis Moderate major depressive disorder with anxiety single episode (CMS/HCC) (CMS/HCC) documented in this encounter Additional Health Concerns Assessment Noted Time PHQ-9 Depression Total Score: 15 024 9:56 AM EDT documented as of this encounter Care Teams Nursing Resident Relationship Specialty Start Date End Date Valentina Gutierrez MD [address] [place] [phone] PCP - General Internal Medicine 03/22/17 documented as of this encounter
--- OUTSIDE RECORDS SUMMARY | 2024-12-29 09:48 | XMS_ITS | Encounter Summary ---
Author Organization [employer] Address [address] [facility] 7t [place] [address] Care Team Providers Care Compound Specialist Name Role Phone Valentina Gutierrez MD Primary Care Provider [phone] Reason for Visit * Reason Comments Med Refill Encounter Details Date Type Department Care Team ([facility] st Contact Info) Description 10/21/2024 Refill [facility] CHC MED & PEDS [address] [place], [place] [phone] Raya Marquez MD [address] [place] [address] Palpitations Social History Tobacco Use Types Packs/Day Years [...] as of this encounter Visit Diagnoses Diagnosis Palpitations documented in this encounter Additional Health Concerns Assessment Noted Time PHQ-9 Depression Total Score: 15 024 9:56 AM EDT documented as of this encounter Care Teams Compound Specialist Relationship Specialty Start Date End Date Valentina Gutierrez MD [address] [place] [id number] PCP - General Internal Medicine 03/22/17 documented as of this encounter
--- OUTSIDE RECORDS SUMMARY | 2024-12-29 09:48 | XMS_ITS | Encounter Summary ---
Author Organization [employer] Address [address] [facility] 7 [place] [address] Care Team Providers Care Motor Coach Supervisor Name Role Phone Valentina Gutierrez MD Primary Care Provider [phone] Reason for Visit * Reason Comments Med Refill Encounter Details Date Type Department Care Team ([facility] st Contact Info) Description 08/25/2024 Refill [facility] MEDICINE [address] [place] [address] Valentina Gutierrez MD [address] [place] [address] Fibromyalgia; Moderate major depressive disorder with anxiety [...] documented as of this encounter Care Teams Motor Coach Supervisor Relationship Specialty Start Date End Date Valentina Gutierrez MD [address] [place] [phone] PCP - General Internal Medicine 03/22/17 documented as of this encounter
--- OUTSIDE RECORDS SUMMARY | 2024-12-29 09:48 | XMS_ITS | Encounter Summary ---
Author Organization [email or web address] Address [address] [facility] [address] [place] [address] Care Team Providers Care Spanish Professor Name Role Phone Valentina Gutierrez MD Primary Care Provider [phone] Encounter Details Date Type Department Care Team (Late st Contact Info) Description 05/16/2023 Orders Only [facility] [address] [place], [place] [id number] Valentina Gutierrez MD [address] [place] [address] Social History Tobacco Use Types Packs/Day Years Used Date Smoking Tobacco: Never Passive Smoke Exposure: Never Smokeless Tobacco: Never Alcohol Use Standard Drinks/Week Comments Never 0 (1 standard drink = 0.6 oz pur e alcohol) Depression Answer Date Recorded Patient Health Questionnaire-9 Score 16 04/05/2023 Patient Health Questionnaire-9 Score 16 04/05/2023 Last PHQ-9: Questionnaire Data Not on file 1 Housing Stability Answer Date Recorded What is [...] Date Recorded Patient Health Questionnaire-2 Score 3 04/05/2023 Comments Unknown Sex and Gender Information Value Date Recorded Sex Assigned at Female 02/05/2022 10:32 AM EDT Legal Sex Female 10:32 AM EDT Gender Identity Female 02/05/2022 10:32 AM EDT Sexual Orientation Straight 02/05/2022 10 :32 AM EDT documented as of this encounter Plan of Treatment Not on file documented as of this encounter Visit Diagnoses Not on filedocumented in this encounter Additional Health Concerns Assessment Noted Time PHQ-9 Depression Total Score: 16 023 2:03 PM EST documented as of this encounter Care Teams Spanish Professor Relationship Specialty Start Date End Date Valentina Gutierrez MD [address] [place] [id number] PCP - General Internal Medicine 03/22/17 documented as of this encounter
--- OUTSIDE RECORDS SUMMARY | 2024-12-29 09:48 | XMS_ITS | Encounter Summary ---
Author Organization [email or web address] Address [address] [facility] [address] [place] [address] Care Team Providers Care Fringe Knotter Name Role Phone Valentina Gutierrez MD Primary Care Provider [phone] Encounter Details Date Type Department Care Team (Latest Contact Info) Description 12/25/2024 Travel Social History Tobacco Use Types Packs/Day Years [...] [place] documented as of this encounter Plan of Treatment Not on file documented as of this encounter Visit Diagnoses Not on filedocumented in this encounter Additional Health Concerns Assessment Noted Time PHQ-9 Depression Total Score: 025 2:12 PM EDT documented as of this encounter Care Teams Fringe Knotter Relationship Specialty Start Date End Date Valentina Gutierrez MD [address] [place] [address] [place] [id number] PCP - General Internal Medicine 03/22/17 documented as of this encounter
--- OUTSIDE RECORDS SUMMARY | 2024-12-29 09:48 | XMS_ITS | Encounter Summary ---
Author Organization [employer] Address [address] [facility] [address] [place] [address] Care Team Providers Care Upholstery Restorer Name Role Phone Valentina Gutierrez MD Primary Care Provider [phone] Encounter Details Date Type Department Care Team (Late st Contact Info) Description 10/07/2024 Orders Only [facility] [address] [place] [address] ProviderGeraldine MD Social History Tobacco Use Types [...] t he electric, gas, oil or water [employer] threatened to shut off services in your [...] Procedure Name Priority Date/Time Associated Diagnosis Comments CT CHEST ANGIO W AND WO IV CONTRAST Routine 10/07/2024 3:55 PM EDT XR CHEST 2 VIEWS Routine 10/07/2024 3:23 PM EDT documented in this encounter Results * CT CHEST ANGIO W AND WO IV CONTRAST (10/07/2024 3:55 PM EDT) Anatomical Region Laterality Modality Computed Tomogra phy us Historical Provider MD ORR CT PROCEDURES Final R esult * XR Chest 2 Views (10/07/2024 3:23 PM EDT) Anatomical Region Laterality Modality Chest Radiographic Karin ging us Historical Provider MD ORR XR PROCEDURES Final R esult documented in this encounter Visit Diagnoses Not on filedocumented in this encounter Additional Health Concerns Assessment Noted Time PHQ-9 Depression Total Score: 15 024 9:56 AM EDT documented as of this encounter Care Teams Upholstery Restorer Relationship Specialty Start Date End Date Valentina Gutierrez MD [address] [place] [id number] PCP - General Internal Medicine 03/22/17 documented as of this encounter
--- OUTSIDE RECORDS SUMMARY | 2024-12-29 09:48 | XMS_ITS | Clinical Summary ---
Author Organization [employer] Address [address] [place] [address] [address] [place] [address] Care Team Providers Care Sheep Sticker Name Role Phone Valentina Gutierrez MD Primary Care Provider [phone] Allergies Active Allergy Reactions Criticality Noted Date Comments Sucralfate Itching High 02/25/2018 Medications * This document contains information received from the source organization and may not represent a complete record from that organization. ARIPiprazole (Abilify) 15 MG tablet Take 15 mg by mouth 1 (one) time each day. Active metroNIDAZOLE (MetroGel-Vagina l) 0.75 % vaginal gel insert 1 applicatorful by vaginal route every day at bedtime for 5 nights 018 Active Reguloid 0.52 g capsule Take 1 capsule by mouth 1 (one) time each day. 022 Active QUEtiapine (SEROquel) 100 MG tablet Take 1 tablet by mouth 1 (one) time each day. Active temazepam (Restoril) 30 MG capsule Take 30 mg by mouth at bedtime. 022 Active senna (Senokot) 8.6 MG tabletIndication s:Slow transit constipation Take 1 tablet by mouth at bedtime as needed for constipation 90 tablet 1 Active Diclofenac Sodium (Voltaren) 1 % gelIndications:P rimary osteoarthritis involving multiple joints apply (2G) by topical route 4 times every day to the affected area(s) 100 g 3 023 Active estradiol-noreth indrone (CombiPatch) 0.05-0.14 MG/DAY Place 1 patch on the skin 2 (two) times a week. Apply patch on nonconsecutive days. Remove old patch when placing new patch 8 patch 2 024 Active Elastic Bandages & Supports (Medical Compression Stockings) miscIndications: Edema, lower extremity Knee high. 15-20 mm/Hg. Dx: venous insufficiency. 1 each 024 Active Omeprazole 20 MG tablet delayed-release Take 1 tablet (20 mg) by mouth Once per day. 90 tablet 025 Active propranolol (Inderal) 10 MG tabletIndication s:Primary hypertension Take 1 tablet (10 mg) by mouth 3 times daily. 90 tablet 025 2025 Active levothyroxine (Synthroid) 112 MCG tabletIndication s:Acquired hypothyroidism Take 1 tablet (112 mcg) by mouth before breakfast. 30 tablet 025 2025 Active levothyroxine (Synthroid) 100 MCG tabletIndication s:Acquired hypothyroidism Take 1 tablet (100 mcg) by mouth before breakfast. 100 mcg every other day, 112 mcg every other day. 30 tablet 025 2025 Active pregabalin (Lyrica) 200 MG capsuleIndicatio ns:Fibromyalgia TAKE 1 CAPSULE BY MOUTH TWICE A DAY 60 capsule 025 Active hydrOXYzine pamoate (Vistaril) 25 MG capsuleIndicatio ns:Palpitations TAKE 1 CAPSULE BY MOUTH EVERY TWELVE HOURS NEEDED ANXIETY 60 capsule 025 Active venlafaxine XR (Effexor XR) 150 MG 24 hr capsuleIndicatio ns:Moderate major depressive disorder with anxiety single episode (CMS/HCC) (CMS/HCC) Take 1 capsule (150 mg) by mouth Once per day. 30 capsule 1 025 Active Fluocinolone Acetonide Scalp (Ralston-Smoothe/F S Scalp) 0.01 % oilIndications:D andruff in adult To use 2 times a week at night. Cover the head w/ a Durag and rinse in the morning after a shampoo. 118 mL 2 025 Active venlafaxine XR (Effexor XR) 150 MG 24 hr capsuleIndicatio ns:Moderate major depressive disorder with anxiety single episode (CMS/HCC) (CMS/HCC) TAKE 1 CAPSULE BY MOUTH DAILY 30 capsule 1 025 2024 Discontinued(R eorder (will not trigger notification to Pharmacy)) hydrOXYzine pamoate (Vistaril) 25 MG capsuleIndicatio ns:Palpitations Take 1 capsule (25 mg) by mouth every 12 (twelve) hours if needed for anxiety. 60 capsule 025 2024 Discontinued Active Problems Problem Noted Date Diagnosed Date Hypercholesterolemia 11/11/2020 Moderate major depressive di sorder with anxiety single episode ([facility]/HCC) 11/11/2020 Fibromyalgia 03/21/2017 Hypothyroidism 03/21/2017 Osteoarthritis 03/21/2017 Peripheral nerve disease 03/21/2017 Scoliosis deformity of spine 03/21/2017 Encounters Date Type Department Care Team Description 12/25/2024 2:00 PM EDT Office Visit [facility] [address] [place] [phone] Valentina Gutierrez MD Acquired hypothyroidism (Primary Dx); Dandruff in adult; Hypercholesterolemia; Moderate major depressive disorder with anxiety single episode ([facility]/HCC) ([facility]) 12/25/2024 Travel 12/16/2024 Refill [facility] [address] [place], [place] [phone] Valentina Gutierrez MD Palpitations; Fibromyalgia; Moderate major depressive disorder with anxiety single episode ([facility]/HCC) ([facility]) 11/19/2024 Refill [facility] [address] [place] [address] Raya Marquez MD Palpitations 11/19/2024 Refill [facility] [address] [place] [address] Valentina Gutierrez MD Fibromyalgia; Palpitations 11/03/2024 Results Follow-Up [facility] [address] [place] [address] Alondra Eubanks RN TSH W/Reflex to FT4 11/02/2024 Orders Only [facility] [address] [place] [address] Valentina Gutierrez MD Acquired hypothyroidism (Primary Dx) 10/27/2024 2:45 PM EDT Office Visit [facility] [address] [place] [address] Valentina Gutierrez MD Primary hypertension (Primary Dx); Acquired hypothyroidism; Dietary counseling; Exercise counseling; Palpitations 10/27/2024 Travel 10/26/2024 Telephone [facility] [address] [place] [address] Valentina Gutierrez MD Chart Prep 10/21/2024 Refill [facility] [address] [place] [address] Raya Marquez MD Palpitations 10/21/2024 Refill [facility] [address] [place] [phone] Valentina Gutierrez MD Fibromyalgia; Moderate major depressive disorder with anxiety single episode (CMS/HCC) ([facility]) 10/19/2024 Orders Only [facility] [address] [place] [address] Dwayne Whitney MD 10/16/2024 9:20 AM EDT Office Visit [facility] [address] [place] [address] Raya Marquez MD Gastroesophageal reflux disease without esophagitis (Primary Dx); Palpitations 10/16/2024 Telephone [facility] [address] [place] [phone] Valentina Gutierrez MD Medication alternative 10/16/2024 Travel 10/14/2024 Telephone [facility] [address] [place] [phone] Valentina Gutierrez MD Nurse Triage 10/12/2024 Telephone [facility] [address] [place] [address] Valentina Gutierrez MD ER Follow-up 10/08/2024 Telephone [facility] [address] [place] [address] Valentina Gutierrez MD Referral 10/08/2024 Orders Only [facility] [address] [place], [place] [phone] Geraldine Zavala MD 10/07/2024 Orders Only [facility] [address], [place] [phone] Geraldine Zavala MD 10/06/2024 Refill [facility] [address], [place] [phone] Valentina Gutierrez MD Fibromyalgia 10/01/2024 9:40 AM EDT Office Visit [facility] [address], [place] [phone] Sharon Gonzalez MD Tachycardia (Primary Dx); Acquired hypothyroidism 10/01/2024 Results Follow-Up [facility] [address], [place] [phone] Sharon Gonzalez MD TSH, D Dimer High Sensitivity 10/01/2024 Orders Only [facility] [address], [place] [phone] Sharon Gonzalez MD Acquired hypothyroidism (Primary Dx) 10/01/2024 Travel 09/30/2024 Telephone [facility] [address] [place] [address] Valentina Gutierrez MD Nurse Triage from Last 3 Months Immunizations Immunization Administration Dates Next Due Hep B, adult 12/25/2024 Influenza injectable quadriv alent IIV4 with preservative 01/27/2019,01/09/2018,04/19/2017 Influenza injectable quadriv alent preservative free 04/05/2023 Influenza, seasonal, injecta ble, preservative free 12/24/2023 Pfizer Covid-19 Vaccine 12+ 10/02/2020, Pneumococcal Conjugate PCV 20 12/25/2024 Tdap 04/19/2017 Zoster, Recombinant 11/23/2020 Social History [...] Mass Index 28.62 12/25/2024 1:31 PM EDT Plan of Treatment Health Maintenance Due Date Last Done Comments CT Colonography 1970 Colonoscopy 1970 FIT 1970 Sigmoidoscopy 1970 Disability Screening 1970 Zoster Vaccines (2 of 2) 01/18/2021 11/23/2020 FOBT 05/08/2024 05/08/2023 COVID-19 Vaccine (3 - 2024- season) 2024 10/02/2020, 09/11/2020 Influenza Vaccine (#1) 2024 , 04/05/2023, 01/27/2019, Additional history exists Hepatitis B Vaccines (2 of 3 - 19+ 3-dose series) 01/22/2025 12/25/2024 Depression Monitoring 06/24/2025 12/25/2024, 025 Alcohol/Substance Use Screening 12/25/2025 12/25/2024 SDOH Screening 12/25/2025 12/25/2024 Tobacco Screening 12/25/2025 12/25/2024 Mammogram 03/31/2026 03/31/2024, 03/08, 12/21/2021, Additional history exists Cervical Cancer Screening 04/23/2026 HPV/Cotest 04/23/2026 04/23/2023, 01/07, 05/07/2017 Pap Smear 04/23/2026 04/23/2023 Colorectal Cancer Screening 05/08/2026 FIT DNA/Cologuard 05/08/2026 05/08/2023 DTaP/Tdap/Td Vaccines (2 - Td or Tdap) 04/19/2027 04/19/2017 Lipid Panel 12/23/2028 12/24/2023, 02/0 08/2023, 05/24/2022 RSV Patients and Patients Aged 60 years or older (1 - 1-dose 75+ series) 2044 HIV Screening Completed 05/13/2023 Hepatitis C Screening Completed 12/24/2023 Pneumococcal Vaccine: 50+ Years Completed 12/25/2024 HIB Vaccines Aged Out No longer eligi [...] Comments TSH W/REFLEX TO FT4 Routine 10/29/2024 9 :36 AM EDT Acquired hypothyroidism CT CHEST ANGIO W AND WO IV CONTRAST Routine 10/07/2024 3:55 PM EDT XR CHEST 2 VIEWS Routine 10/07/2024 3:23 PM EDT ECG 12-LEAD Routine 10/07/2024 9:11 AM EDT ECG 12-LEAD Routine 10/01/2024 12:51 PM EDT Tachycardia D DIMER HIGH SENSITIVITY Routine 10/01/2024 10:52 AM EDT Tachycardia TSH Routine 10/01/2024 10:52 AM EDT Tachycardia Acquired hypothyroidism BI MAMMOGRAM SCREENING TOMOSYNTHESIS BILATERAL Routine 03/31/2024 10:44 AM EST HEPATITIS C AB W/REFL TO HCV RNA, QN, PCR Routine 12/24/2023 10:53 AM EDT Hypercholesterolemia Acquired hypothyroidism LIPID PANEL, STANDARD Routine 12/24/2023 10:53 AM EDT Hypercholesterolemia Acquired [...] Recently Relevant to Health Maintenance Results * TSH W/Reflex to FT4 (10/29/2024 9:36 AM EDT) TSH reflex Free T4 0.33 0.32 - 4.0 uIU/mL [facility] Blood Venous blood specimen / Unknown 10/29/2024 9:36 AM EDT 10/29/2024 2:02 PM EDT Valentina Gutierrez MD LAB BLOOD ORDERABLES Final Result [facility] [address] [place] [phone] * CT CHEST ANGIO W AND WO IV CONTRAST (10/07/2024 3:55 PM EDT) Anatomical Region Laterality Modality Computed Tomogra phy Historical Provider IMG CT PROCEDURES Final R esult * XR Chest 2 Views (10/07/2024 3:23 PM EDT) Anatomical Region Laterality Modality Chest Radiographic Karin ging Historical Provider IMG XR PROCEDURES Final R esult * ECG 12 lead (10/07/2024 9:11 AM EDT) Only the most recent of2 resultswithin the time period is included. Historical Provider ECG ORDERABLES Final Res ult * D Dimer High Sensitivity (10/01/2024 10:52 AM EDT) Pathologist [facility] D Dimer High Sensitivity <150 NG/ML [facility] Comment:D-DIMER HS REFERENCE RANGENote: Our assay reports D-Dimer Units (D- DU).The cut-off value for venous thromboembolic (VTE) disease is230 ng/mL. This value has a very high negative predictivevalue when the patient has a low to moderate clinicalprobability of VTE.The upper limit of normal is 243 ng/mL. Blood 10/01/2024 10:5 2 AM EDT 10/01/2024 11:25 AM EDT us Sharon Gonzalez MD LAB BLOOD ORDERABLES Final Re sult Performing Organization Address [facility] Co de Phone Number [facility] [address] [place] [phone] * (ABNORMAL) TSH (10/01/2024 10:52 AM EDT) Thyroid Stimulating Hormone 0.23(L) 0.32 - 4.0 uIU/mL [facility] Comment:TSH 3rd Generation ( [facility]) Blood Venous blood specimen / Unknown 10/01/2024 10:52 AM EDT 10/01/2024 11:25 AM EDT us Sharon Gonzalez MD LAB BLOOD ORDERABLES Final Re sult Performing Organization Address [facility] Co de Phone Number [facility] [address] [place] [phone] * BI Mammogram Screening Tomosynthesis Bilateral (03/31/2024 10:44 AM EST) Anatomical Region Laterality Modality Breast Bilateral Mammography 03/31/2024 10:4 4 AM EST Narrative 04/14/2024 9:50 AM EST [facility] [address] [place] [address] Mammography Report Signed Patient: Staci Yoder MR#: [id number] [birth year] : 1970 Acct:[id number] Age/Sex: 53 / F ADM Date: 03/31/24 Loc: HO.MAMMO Attending Dr: Valentina Gutierrez MD Ordering Physician: Valentina Gutierrez MD Results: 1 Negative Date of Service: 03/31/24 Follow Up: 1 Year From Orig inal Mammogram Procedure(s): MM tomosynthesis screening BI Accession Number(s): [id number] cc: Valentina Gutierrez MD EXAMINATION: MM SCREENING [...] 04/14/24 0947 DD/ 1044 TD/TT: 03/31/24 1058 Data Management Analyst: Procedure Note Donotuseinterpreter, Image - 04/14/2024 [place] [facility] [address] [place] [address] Mammography Report Signed Patient: Staci Yoder#: [id number] 02 : 1970Acct:[id number] Age/Sex: 53 / FADM Date: 03/31/24 Loc: HO.MAMMO Attending Dr: Valentina Gutierrez MD Ordering Physician: Valentina Gutierrez MDResults: 1 Negative Date of Service: 03/31/24Follow Up: 1 Year From Orig inal Mammogram Procedure(s): MM tomosynthesis screening BI Accession Number(s): [id number] cc: Valentina Gutierrez MD EXAMINATION: MM SCREENING [...] 04/14/24 0947 DD/ 1044 TD/TT: 03/31/24 1058 Data Management Analyst: Valentina Gutierrez MD IMG BI PROCEDURES Edited Re sult - Final * Hepatitis C Antibody with Reflex to HCV, RNA, Quantitative, Real-Time PCR (12/24/2023 10:53 AM EDT) Hepatitis C Antibody Nonreactive Nonreactive [facility] Comment:Antibodies to HCV no t detected; does not exclude early acuteHCV infection. Blood Venous blood specimen / Unknown 12/24/2023 10:53 AM EDT 12/24/2023 2:54 PM EDT Valentina Gutierrez MD LAB BLOOD ORDERABLES Final Result [facility] [address] [place] [phone] * (ABNORMAL) Lipid Panel, Standard (12/24/2023 10:53 AM EDT) Triglycerides 114 <150 mg/dL [facility] Comment:Desirable Triglyceri de: less than 150 mg/dLBorderline High Triglyceride 150-199 mg/dLHigh Triglyceride: 200-499 mg/dLVery High Triglyceride: greater than or equal to 5OO mg/dL Cholesterol 273(H) <200 mg/dL [facility] Comment:Desirable Cholestero l: less than 200 mg/dLBorderline High Cholesterol: 200-239 mg/dLHigh Cholesterol: greater than 239 mg/dL LDL Cholesterol Calculated 184(H) <100 mg/dL [facility] Comment:Desirable LDL: less than 100 mg/dLNear Optimal/Above Optimal LDL: 110- 129 mg/dLBorderline High LDL: 130-159 mg/dLHigh LDL: 160-189 mg/dLVery High LDL: greater than or equal to 190 mg/dL HDL Cholesterol 67 >40 mg/dL [facility] Comment:Desirable HDL: great er than 40 mg/dL Note: This HDL assay may give artificially low results in patients with liver disease. Blood Venous blood specimen / Unknown 12/24/2023 10:53 AM EDT 12/24/2023 2:54 PM EDT us Valentina Gutierrez MD LAB BLOOD ORDERABLES Final Result [facility] [address] [place] [phone] * HIV-1/2 Antigen and Antibodies, Fourth Generation, with Reflexes (05/13/2023 10:20 AM EST) HIV AB/AG Nonreactive Nonreactive [facility] Comment:HIV-1 p24 Ag and/or HIV-1/HIV-2 Ab not detected.A test result that is nonreactive does not exclude thepossibility of exposure to or infection with HIV-1 and/orHIV-2. Nonreactive results in this assay for individualswith prior exposure to HIV-1 and/or HIV-2 may be due toantigen and antibody levels that are below the limit ofdetection of this assay.The [employer] HIV Ag/Ab Combo assay result andsupplemental assay results should be interpreted inconjunction with the patient's clinical presentation,history and other laboratory results. If the results areinconsistent with clinical evidence, additional testing issuggested to confirm the result. Blood Venous blood specimen / Unknown 05/13/2023 10:20 AM EST 05/13/2023 2:36 PM EST us Valentina Gutierrez MD LAB BLOOD ORDERABLES Final Result [facility] [address] [place] [phone] * Cologuard?? colon cancer screening (05/08/2023 2:10 PM EST) Cologuard Result Negative Negative 05/16/19 2:45 AM EST [facility] (CLIA #:[id number]) Comment: NEGATIVE TEST RESULT. A negative Cologuard [...] (Nidhi Ulrich al, N Engl J Med 2014;370(14):5523-8677) The normal value (reference range) for this assay is negative. COLOGUARD RE-SCREENING RECOMMENDATION: Periodic colorectal cancer screening is an important part of preventive healthcare for asymptomatic individuals at average risk for colorectal cancer. Following a negative Cologuard result, the [place] [employer] and U.S. Multi-Society Task Force screening guidelines recommend a Cologuard re-screening interval of 3 years. References: [place] [employer] Guideline for Colorectal Cancer Screening: https://www.cancer.org/cancer/yznmg-mwayqc-tcbgxo/gcfgrmnch-xhpaurtac-sekxtej/ac s-rec ommendations.html.; Fidel DK, Maria Teresa CR, Eric DillardK, Colorectal Cancer Screening: Recommendations for Physicians and Patients from the U.S. Multi-Society Task Force on Colorectal Cancer Screening , Am J Gastroenterology 2017; 112:4510-0700. TEST DESCRIPTION: Composite algorithmic analysis of stool [...] Mujica et al, N Engl J Med 2014;370(14):3781-4672.) Cologuard may produce a false negative or false positive result (no colorectal cancer or precancerous polyp present at colonoscopy follow up). A negative Cologuard test result does not guarantee the absence of CRC or advanced adenoma (pre-cancer). The current Cologuard screening interval is every 3 years. ([place] [employer] and U.S. Multi-Society Task Force). Cologuard performance data in a 10,000 patient pivotal study using colonoscopy as the reference method can be accessed at the following location: www.[employer].for; to (do)/results. Additional description of the Cologuard test process, warnings and precautions can be found at www.[employer].com. Stool specimen (specimen) 05/08/2023 2:10 PM EST 05/09/2023 10:50 AM EST us Valentina Gutierrez MD LAB MOLECULAR DIAGNOSTICS O RDERABLES Final Result [facility] (CLIA #:[id number]) [place] [address], * HPV mRNA E6/E7 w/Reflex to HPV Genotypes 16, 18/45 (04/23/2023 2:20 PM EST) HPV nRNA E6/E7 Not Detected Not Detected [facility] Comment:Methodology: Transcr iption-Mediated AmplificationThis assay detects E6/E7 viral messenger RNA (mRNA) from 14high-risk HPV types (16,18,31,33,35,39,45,51,52,56,58,59,66,68).Cervical sources are required for HPV testing.If a vaginal source from a patient who has had atotal hysterectomy with removal of cervix wassubmitted, please contact the testing laboratoryfor alternative testing options.For additional information, please refer tohttp://education.[employer]/faq/GZG076f2(This link if provided for information/educational purposes only.)THIS TEST WAS PERFORMED AT:[employer] [facility] [employer] [place] [phone] TAYLOR MD HPV mRNA E6/E7 [facility] HPV 16 RNA [facility] HPV 18/45 RNA [facility] 04/23/2023 2:20 PM EST 04/24/2023 11:50 AM EST Trudi Valencia CNM LAB CYTOLOGY ORDERABLES F inal Result Performing Organization Address City/[facility]/ZIP Co de Phone Number [facility] [address] [place] [phone] * Pap Smear (04/23/2023 2:20 PM EST) Swab Cervix uteri structure / Unknown 04/23/2023 2:20 PM EST 04/24/2023 11:50 AM EST Narrative [facility] - 04/29/2023 3:08 PM EST ----- ------- Name: Staci Yoder Age/Sex: 52/F : 1970 Unit#: [id number] Attend Dr: Re04/23/23 Status: PRE [facility] ----- ------- SPEC : [id number] RECD: 04/24/23-1150 STATUS: LEV POON NUM: [id number] EZ: 04/23/23-[address] [facility] [address]: TRUDI VALENCIA CNM ENTERED: 04/24/23-1201 SP TYPE: Pap Smr [facility] DR: ORDERED: Pap Smear Interpretation Satisfactory for evaluation. No endocervical cells seen. Negative for intraepithelial lesion or malignancy. HPV mRNA E6/E7: NOT DETECTED This assay detects E6/E7 viral messenger RNA (mRNA) from 14 high-risk HPV types (16, 18, 31, 33, 35, 39, 45, 51, 52, 56, 58, 59, 66, 68) HPV testing performed by [facility], [place], [place]. See reference laboratory portion of the EMR for entire report. Clinical Information LMP: Unknown date Previous PAP test: Unknown date/findings Material Received ThinPrep-Cervical ----- ------- Signed (signature on file) Jimena Rizvi 04/29/23 1508 ----- ------- END OF REPORT Trudi Valencia [facility] LAB CYTOLOGY ORDERABLES F inal Result [facility] [address] [place] [address] [phone] from Last 3 Months or Most Recently Relevant to Health Maintenance Insurance [facility] < 65 [place] [id number] Care Teams Sheep Sticker Relationship Specialty Start Date End Date Valentina Gutierrez MD [address] [place] [phone] PCP - General Internal Medicine 03/22/17
--- OUTSIDE RECORDS SUMMARY | 2024-12-29 09:48 | XMS_ITS | Clinical Summary ---
Author Organization [facility] Address [address] [place] [address] Phone Care Team Providers Care Aviation Engineer Name Role Phone Valentina Gutierrez MD Primary Care Provider [phone] Allergies No known active allergies Medications No known medications Active Problems No known active problems Encounters Date Type Department Care Team Description 10/07/2024 1:36 PM EDT - 10/07/2024 6:48 PM EDT Emergency [facility] Emergency [address] [place] [address] Fred Lanier MD Cheng, Ting Ho Danny, Chest pain, unspecified type (Primary Dx); Gastroesophageal reflux disease without esophagitis Discharge Disposition: Home or Self Care from [...] Zoster Vaccines (2 of 2) 01/18/2021 11/23/2020 Depression Screening 04/08/2024 Cholesterol Screening (Lipid Panel) 09/15/2024 Medicare Annual Wellness Visit 09/15/2024 Social Influencers of Health Screening 09/15/2024 COVID-19 Vaccine (2024- season) 2024 10/02/2020, 09/11/2020 Influenza Vaccine (#1) 2024 , 04/05/2023, 01/27/2019, Additional history exists Cervical Cancer Screening: Pap Smear 04/23/2026 04/23/2023 Colorectal Cancer Screening: FIT-DNA (Cologuard) 05/08/2026 05/08/2023 DTaP,Tdap,and Td Vaccines (2 - Td or Tdap) 04/19/2027 04/19/2017 RSV Immunization Adult Patients (1 - 1-dose 75+ series) 2044 HIV [...] ECG 12-LEAD STAT 10/07/2024 1:30 PM EDT from Last 3 Months Results * ECG-Annotated (10/08/2024) us Provider Onbase MD ECG ORDERABLES Final [...] Signed Date: 10/07/2024 15:32 ET Workstation ID: [id number] Transcribed By: Self Edit Transcribed Date: 10/07/2024 15:30 ET Narrative 10/07/2024 3:32 PM EDT PROCEDURE: CT ANGIO CHEST INDICATION: PE suspected, high prob COMPARISON: None. TECHNIQUE: CT pulmonary angiogram performed following uneventful IV administration of ISOVUE contrast material with bolus timing technique from the thoracic inlet through the lung bases. 3-D multiplanar reformations were obtained by the technologist on an independent workstation. [employer]ela[employer] VCT dose reduction utilizing iterative reconstruction. Total [...] obtained by the technologist on anindependent workstation. [employer]ela[employer] VCT dose reduction utilizing iterative reconstruction. Total [...] Signed Date: 10/07/2024 15:32 ET Workstation ID: [id number] Transcribed By: Self Edit Transcribed Date: 10/07/2024 15:30 ET Fred Lanier MD IMG CT PROCEDURES Final Result * Troponin I high sensitivity (10/07/2024 2:37 PM EDT) Only the most recent of2 resultswithin the time period is included. High Sensitivity Troponin I 8 <=54 ng/L LAB CHEMISTRY METHOD 10/07/2024 3:41 PM EDT [facility] Blood Venous blood specimen / Unknown Venipuncture / Unknown 10/07/2024 2:37 PM EDT 10/07/2024 3:07 PM EDT Narrative [facility] - 10/07/2024 3:41 PM EDT High levels of biotin in samples may falsely decrease hsTroponin values. Use caution when interpreting hsTroponin results in patients taking biotin who exhibit renal impairment (eGFR <60) or in patients taking more than 20 mg/day of biotin. us Fred Lanier MD LAB BLOOD ORDERABLES Final Resu lt [facility] [address] [place] [address], [place] [phone] * XR Chest 2 Views (10/07/2024 2:04 PM EDT) Anatomical Region Laterality Modality Body Radiographic Karin [...] Signed Date: 10/07/2024 14:37 ET Workstation ID: [id number] Transcribed By: Self Edit Transcribed Date: 10/07/2024 [...] Signed Date: 10/07/2024 14:37 ET Workstation ID: [id number] Transcribed By: Self Edit Transcribed Date: 10/07/2024 14:37 ET us Fred Lanier MD IMG XR PROCEDURES Final Result * (ABNORMAL) Thyroid stimulating hormone with reflex to free t4 and free t3 (TSH Reflex) (10/07/2024 1:54 PM EDT) [facility] TSH 0.26(L) 0.40 - 4.00 mcIU/mL LAB CHEMISTRY METHOD 10/07/2024 3:43 PM EDT [facility] Blood Venous blood specimen / Unknown Venipuncture / Unknown 10/07/2024 1:54 PM EDT 10/07/2024 2:16 PM EDT us Fred Lanier MD LAB BLOOD ORDERABLES Final Resu lt Performing Organization Address [facility] Co de Phone Number [facility] [address] [place] [address], [place] [phone] * Free thyroxine with reflex to free triiodothyronine (10/07/2024 1:54 PM EDT) [facility] Free T4 1.71 0.70 - 1.80 ng/dL LAB CHEMISTRY METHOD 10/07/2024 5:16 PM EDT [facility] Blood Venous blood specimen / Unknown Venipuncture / Unknown 10/07/2024 1:54 PM EDT 10/07/2024 2:16 PM EDT us Fred Lanier MD LAB BLOOD ORDERABLES Final Resu lt Performing Organization Address City/[facility]/ZIP Co de Phone Number [facility] [address] [place] [address], [place] [phone] * (ABNORMAL) CBC auto differential (10/07/2024 1:54 PM EDT) [facility] WBC 10.4 4.8 - 10.8 K/[facility] LAB HEMETOLOGY METHOD 10/07/2024 2:25 PM EDT [facility] RBC 5.00(H) 3.80 - 4.80 M/[facility] LAB HEMETOLOGY METHOD 10/07/2024 2:25 PM EDT [facility] Hemoglobin 14.3 11.5 - 16.0 g/dL LAB HEMETOLOGY METHOD 10/07/2024 2:25 PM EDT [facility] Hematocrit 44.2 35.0 - 47.0 % LAB HEMETOLOGY METHOD 10/07/2024 2:25 PM EDT [facility] MCV 87.9 79.0 - 98.0 FL LAB HEMETOLOGY METHOD 10/07/2024 2:25 PM EDT [facility] MCH 28.4 27.0 - 32.0 pcg LAB HEMETOLOGY METHOD 10/07/2024 2:25 PM EDT [facility] MCHC 32.4 32.0 - 37.0 g/dL LAB HEMETOLOGY METHOD 10/07/2024 2:25 PM EDT [facility] RDW 12.5 11.0 - 15.0 % LAB HEMETOLOGY METHOD 10/07/2024 2:25 PM EDT [facility] Platelets 363 130 - 400 K/mcL LAB HEMETOLOGY METHOD 10/07/2024 2:25 PM EDT [facility] MPV 9.5 7.0 - 11.0 FL LAB HEMETOLOGY METHOD 10/07/2024 2:25 PM EDT [facility] NRBC 0.0 <1.0 % LAB HEMETOLOGY METHOD 10/07/2024 2:25 PM EDT [facility] NRBC Absolute 0.00 <0.10 K/mcL LAB HEMETOLOGY METHOD 10/07/2024 2:25 PM EDT [facility] Neutrophils Relative 61.5 % LAB HEMETOLOGY METHOD 10/07/2024 2:25 PM EDT [facility] Lymphocytes Relative 33.6 % LAB HEMETOLOGY METHOD 10/07/2024 2:25 PM EDT [facility] Monocytes Relative 4.2 % LAB HEMETOLOGY METHOD 10/07/2024 2:25 PM EDT [facility] Eosinophils Relative 0.1 % LAB HEMETOLOGY METHOD 10/07/2024 2:25 PM EDT [facility] Basophils Relative 0.2 % LAB HEMETOLOGY METHOD 10/07/2024 2:25 PM EDT [facility] Immature Granulocytes Relative 0.4 % LAB HEMETOLOGY METHOD 10/07/2024 2:25 PM EDT [facility] Neutrophils Absolute 6.40 1.50 - 7.00 K/mcL LAB HEMETOLOGY METHOD 10/07/2024 2:25 PM EDT [facility] Lymphocytes Absolute 3.50 1.00 - 5.00 K/mcL LAB HEMETOLOGY METHOD 10/07/2024 2:25 PM EDT [facility] Monocytes Absolute 0.44 0.20 - 1.00 K/mcL LAB HEMETOLOGY METHOD 10/07/2024 2:25 PM EDT [facility] Eosinophils Absolute 0.01 0.00 - 0.50 K/mcL LAB HEMETOLOGY METHOD 10/07/2024 2:25 PM EDT [facility] Basophils Absolute 0.02 0.00 - 0.20 K/mcL LAB HEMETOLOGY METHOD 10/07/2024 2:25 PM EDT [facility] Immature Granulocytes Absolute 0.04(H) 0.00 - 0.03 K/mcL LAB HEMETOLOGY METHOD 10/07/2024 2:25 PM EDT [facility] Blood Venous blood specimen / Unknown Venipuncture / Unknown 10/07/2024 1:54 PM EDT 10/07/2024 2:16 PM EDT us Fred Lanier MD LAB BLOOD ORDERABLES Final Resu lt [facility] [address] [place] [address], [place] [phone] * Triiodothyronine free (10/07/2024 1:54 PM EDT) T3, Free 331 230 - 420 pcg/dL LAB CHEMISTRY METHOD 10/07/2024 6:03 PM EDT [facility] Blood Venous blood specimen / Unknown Venipuncture / Unknown 10/07/2024 1:54 PM EDT 10/07/2024 2:16 PM EDT us Fred Lanier MD LAB BLOOD ORDERABLES Final Resu lt [facility] [address] [place] [address], [place] [phone] * B-type natriuretic peptide (10/07/2024 1:54 PM EDT) BNP <2 <=100 pcg/mL LAB CHEMISTRY METHOD 10/07/2024 2:53 PM EDT [facility] Blood Venous blood specimen / Unknown Venipuncture / Unknown 10/07/2024 1:54 PM EDT 10/07/2024 2:16 PM EDT us Fred Lanier MD LAB BLOOD ORDERABLES Final Resu lt [facility] [address] [place] [address], [place] [phone] * Magnesium (10/07/2024 1:54 PM EDT) Magnesium 2.0 1.9 - 2.6 mg/dL LAB CHEMISTRY METHOD 10/07/2024 2:58 PM EDT [facility] Blood Venous blood specimen / Unknown Venipuncture / Unknown 10/07/2024 1:54 PM EDT 10/07/2024 2:16 PM EDT us Fred Lanier MD LAB BLOOD ORDERABLES Final Resu lt Performing Organization Address [facility]/ZIP Co de Phone Number [facility] [address] [place] [address], [place] [phone] * Lipase (10/07/2024 1:54 PM EDT) Pathologist [facility] Lipase 41 13 - 75 unit/L LAB CHEMISTRY METHOD 10/07/2024 2:58 PM EDT [facility] Blood Venous blood specimen / Unknown Venipuncture / Unknown 10/07/2024 1:54 PM EDT 10/07/2024 2:16 PM EDT us Fred Lanier MD LAB BLOOD ORDERABLES Final Resu lt Performing Organization Address [facility]/ZIP Co de Phone Number [facility] [address] [place] [address], [place] [phone] * (ABNORMAL) Comprehensive metabolic panel (10/07/2024 1:54 PM EDT) [facility] Sodium 135 133 - 145 mmol/L LAB CHEMISTRY METHOD 10/07/2024 2:58 PM EDT [facility] Potassium 3.7 3.5 - 5.5 mmol/L LAB CHEMISTRY METHOD 10/07/2024 2:58 PM EDT [facility] Chloride 103 96 - 110 mmol/L LAB CHEMISTRY METHOD 10/07/2024 2:58 PM EDT [facility] CO2 26 21 - 32 mmol/L LAB CHEMISTRY METHOD 10/07/2024 2:58 PM EDT [facility] Anion Gap 6 3 - 11 LAB CHEMISTRY METHOD 10/07/2024 2:58 PM EDT [facility] Glucose 158(H) 70 - 100 mg/dL LAB CHEMISTRY METHOD 10/07/2024 2:58 PM EDT [facility] BUN 19 5 - 25 mg/dL LAB CHEMISTRY METHOD 10/07/2024 2:58 PM [facility] Creatinine 1.16(H) 0.50 - 1.10 mg/dL LAB CHEMISTRY METHOD 10/07/2024 2:58 PM [facility] eGFR 56(L) >=60 mL/min/1. 73m2 LAB CHEMISTRY METHOD 10/07/2024 2:58 PM [facility] Comment:Calculation based on the Chronic Kidney Disease Epidemiology Collaboration (CKD-EPI) equation refit without adjustment for race. BUN/Creatinine Ratio 16.4 LAB CHEMISTRY METHOD 10/07/2024 2:58 PM [facility] Calcium 10.0 8.5 - 10.5 mg/dL LAB CHEMISTRY METHOD 10/07/2024 2:58 PM [facility] AST (SGOT) 23 10 - 42 unit/L LAB CHEMISTRY METHOD 10/07/2024 2:58 PM [facility] ALT (SGPT) 33 10 - 60 unit/L LAB CHEMISTRY METHOD 10/07/2024 2:58 PM [facility] Alkaline Phosphatase 119 42 - 121 unit/L LAB CHEMISTRY METHOD 10/07/2024 2:58 PM [facility] Total Protein 8.2(H) 6.0 - 8.0 g/dL LAB CHEMISTRY METHOD 10/07/2024 2:58 PM [facility] Albumin 4.0 3.2 - 5.0 g/dL LAB CHEMISTRY METHOD 10/07/2024 2:58 PM [facility] Total Bilirubin 0.6 0.0 - 1.4 mg/dL LAB CHEMISTRY METHOD 10/07/2024 2:58 PM [facility] Blood Venous blood specimen / Unknown Venipuncture / Unknown 10/07/2024 1:54 PM EDT 10/07/2024 2:16 PM EDT Fred Lanier MD LAB BLOOD ORDERABLES Final Resu lt Performing Organization Address City/[facility]/ZIP Co de Phone Number [facility] [address] [place] [address], [place] [phone] * ECG 12 lead (10/07/2024 1:30 PM EDT) Ventricular Rate ECG 124 BPM GEMUSE Atrial [...] 1:30 PM EDT 10/08/2024 5:39 AM EDT Fred Lanier MD ECG ORDERABLES Final Result Performing Organization Address [facility] Co de Phone Number GEMSAKINA from Last 3 Months Insurance [facility]IC[facility] Member Subscriber Plan / Payer (Ef fective 2019-Present) Name:STACI APPIAH Relation to Subscriber:Self Name:Staci Appiah Payer ID:[id number] Group ID:[id number] Type:Not on file Address: [place] [address] [id number] Care Teams Aviation Engineer Relationship Specialty Start Date End Date Valentina Gutierrez MD [address], [place] PCP - General Internal Medicine 11/11/20
--- OUTSIDE RECORDS SUMMARY | 2024-12-29 09:48 | XMS_ITS | Encounter Summary ---
Author Organization [employer] Address [address] [place] [address] Care Team Providers Care Fisher Crab Name Role Phone Valentina Gutierrez MD Primary Care Provider [phone] Encounter Details Date Type Department Care Team (Late st Contact Info) Description 11/02/2024 Orders Only [facility] [address], [place] [phone] Valentina Gutierrez MD [address] [place] [address] Acquired hypothyroidism (Primary Dx) Social History Tobacco [...] as of this encounter Plan of Treatment Scheduled Orders Name Type Priority Associated Diagnoses Orde r Schedule TSH W/Reflex to FT4 Lab Routine Acquired hypothyroidism Expected: 11/02/2024 (Approximate), Expires: 11/02/2025 documented as of this encounter Visit Diagnoses Diagnosis Acquired hypothyroidism- Primary Unspecified hypothyroidism documented in this encounter Additional Health Concerns Assessment Noted Time PHQ-9 Depression Total Score: 15 024 9:56 AM EDT documented as of this encounter Care Teams Fisher Crab Relationship Specialty Start Date End Date Valentina Gutierrez MD [address] [place] [id number] PCP - General Internal Medicine 03/22/17 documented as of this encounter
[2024-12-29 14:55] LABS: Cholesterol 231 mg/dL (<200); HDL Cholesterol 54 mg/dL (>40); Triglycerides 111 mg/dL (<150)
[2024-12-29 15:18] LABS: Thyroid Stimulating Hormone 1.74 uIU/mL (0.32-4.0)
== END 2024-12-29 08:43 | disposition home or self-care (01) ==
LOC: HO.CHCLDS 08:42
PROVIDERS: PCP Internal Medicine; Referring Provider Internal Medicine; Visit Provider Internal Medicine
DX: E03.9 Hypothyroidism, unspecified (principal); E78.00 Pure hypercholesterolemia, unspecified
CPT/HCPCS: 36415; 80061; 84443